=== PATIENT | male | born 1950 | race Caucasian/White ===

== ENCOUNTER 2018-01-25 09:35 | Day surgery (SDC) | payer MEDICARE, MEDICAID ==
[~2018-01-25 09:35] MED LIST: ALBU6.7H INH; ATOR40TA72 PO; CLOP75TA35 PO; CYCL10TA27 PO; DILT180C PO; DULO30CA51 PO; FURO40TA4 PO; GABA-532 PO; GLIM2TAB2 PO; HYDR25TA4 PO; INSU100I8 SQ; INSU100V12 SQ; ISOS30TA6 PO; METF10004 PO; METO25TA6 PO; MIRT30TA8 PO; MULT1TAB74 PO; NITR0.4T51 SL; OMEP-50 PO; POTA20TA19 PO
[2018-01-25] MEDS ORDERED: DULA1.5P (11:46)
[2018-01-25] MEDS ORDERED: LIDOcaine 1%/PF 5ML 10 MG/ML VIAL ONE (12:20)
== END 2018-01-25 13:17 | disposition home or self-care (01) ==
LOC: WOUND CARE 09:35
PROVIDERS: ATTEND Surgery
DX: E11.622 Type 2 diabetes mellitus with other skin ulcer (principal); L98.492 Non-pressure chronic ulcer of skin of other sites with fat layer exposed; I25.10 Atherosclerotic heart disease of native coronary artery without angina pectoris; J44.9 Chronic obstructive pulmonary disease, unspecified; I11.0 Hypertensive heart disease with heart failure; I50.9 Heart failure, unspecified; K21.9 Gastro-esophageal reflux disease without esophagitis; G89.29 Other chronic pain; E78.00 Pure hypercholesterolemia, unspecified; M06.9 Rheumatoid arthritis, unspecified; F41.9 Anxiety disorder, unspecified; F12.10 Cannabis abuse, uncomplicated; Z79.4 Long term (current) use of insulin
CPT/HCPCS: 11100; 36416; 82948; 93971; J2001; 88304

== ENCOUNTER 2018-02-01 09:36 | Outpatient (CLI) | payer MEDICARE, MEDICAID ==
[~2018-02-01 09:36] MED LIST changes: -CLOP75TA35 PO; -CYCL10TA27 PO; +DULA1.5P; -GLIM2TAB2 PO; -HYDR25TA4 PO; -INSU100I8 SQ; -OMEP-50 PO
== END 2018-02-01 10:35 | disposition home or self-care (01) ==
LOC: WOUND CARE 09:36
PROVIDERS: ATTEND Surgery
DX: E11.622 Type 2 diabetes mellitus with other skin ulcer (principal); L98.492 Non-pressure chronic ulcer of skin of other sites with fat layer exposed; I25.10 Atherosclerotic heart disease of native coronary artery without angina pectoris; J44.9 Chronic obstructive pulmonary disease, unspecified; I11.0 Hypertensive heart disease with heart failure; I50.9 Heart failure, unspecified; K21.9 Gastro-esophageal reflux disease without esophagitis; G89.29 Other chronic pain; E78.00 Pure hypercholesterolemia, unspecified; M06.9 Rheumatoid arthritis, unspecified; F41.9 Anxiety disorder, unspecified; F12.10 Cannabis abuse, uncomplicated; Z79.4 Long term (current) use of insulin
CPT/HCPCS: 82948; 99215

== ENCOUNTER 2018-03-08 17:05 | Emergency (ER) | payer MEDICARE, MEDICAID ==
[~2018-03-08] VITALS: Ht 584.7 cm; Wt 88.0 kg
[~2018-03-08 17:05] MED LIST changes: +METF-438 PO; -METF10004 PO
[2018-03-08] MEDS ORDERED: normal saline 1000ML IV soln IV ONE (17:15)
[2018-03-08] MEDS ORDERED: acetaminophen 325mg tablet PO ONE (17:20)
[2018-03-08] MEDS ORDERED: LORazepam 2 mg/ml vial IV ONE (17:40)
[2018-03-08 17:50] LABS: BASOPHILS # (AUTO) 0.1 X10'3 (0-0.2); BASOPHILS % (AUTO) 0.5 % (0-1); EOSINOPHILS # (AUTO) 0.1 X10'3 (0-0.9); EOSINOPHILS % (AUTO) 0.7 % (0-6); HEMATOCRIT 34.3 % (42.0-52.0); HEMOGLOBIN 11.7 g/dl (14.0-17.9); LYMPHOCYTES # (AUTO) 0.6 X10'3 (1.1-4.8); LYMPHOCYTES % (AUTO) 4.4 % (21-51); MEAN CORPUSCULAR HEMOGLOBIN 32.6 PG (27.0-31.0); MEAN CORPUSCULAR HGB CONC 34.2 % (33.0-36.5); MEAN CORPUSCULAR VOLUME 95.3 FL (78-98); MEAN PLATELET VOLUME 8.7 FL (7.4-10.4); MONOCYTES # (AUTO) 0.1 X10'3 (0-0.9); MONOCYTES % (AUTO) 0.9 % (2-12); NEUTROPHILS # (AUTO) 13.3 X10'3 (1.8-7.7); NEUTROPHILS % (AUTO) 93.5 % (42-75); PLATELET COUNT 148 X10'3 (140-440); WHITE BLOOD COUNT 14.3 X10'3 (4.5-11.0)
[2018-03-08 18:01] LABS: INR 1.2 INR; PARTIAL THROMBOPLASTIN TIME 30 SECONDS (22-32); PROTHROMBIN TIME 12.2 SECONDS (9.0-12.0)
[2018-03-08] MEDS ORDERED: CefTRIAXone/D5W-Rocephin 1gm 50 ML IV ONE (18:05)
[2018-03-08] MEDS ORDERED: clindamycin 600mg/D5W 50ml 50 ML IV ONE (18:05)
[2018-03-08] MEDS ORDERED: normal saline 1000ml 1,000 ML IV ONE (18:15)
[2018-03-08 18:17] LABS: ALANINE AMINOTRANSFERASE 42 U/L (12-78); ALBUMIN 3.2 G/DL (3.4-5.0); ALBUMIN/GLOBULIN RATIO 0.9 (1.1-1.5); ALKALINE PHOSPHATASE 76 IU/L (46-116); ANION GAP 8 (8-16); ASPARTATE AMINO TRANSFERASE 26 U/L (10-37); BILIRUBIN,TOTAL 0.6 MG/DL (0.1-1.0); BLOOD UREA NITROGEN 15 MG/DL (7-18); BUN/CREATININE RATIO 13.4 (5.4-32.0); CALCIUM 8.2 MG/DL (8.5-10.1); CHLORIDE 98 MMOL/L (99-107); CREATININE 1.12 MG/DL (0.60-1.10); ETHANOL < 0.010 GM/DL (0.0-0.010); GLUCOSE 168 MG/DL (70-104); SODIUM 135 MMOL/L (135-145); TOTAL CARBON DIOXIDE 28.6 MMOL/L (24-32); TOTAL PROTEIN 6.7 G/DL (6.4-8.2); eGFR 65 ML/MIN
[2018-03-08 18:21] LABS: TOTAL CELLS COUNTED 100
[2018-03-08 18:22] LABS: PLATELET ESTIMATE NORMAL; TOXIC GRANULATION 1+
[2018-03-08 18:57] LABS: URINE AMPHETAMINE SCREEN POSITIVE (Neg); URINE BARBITUATE SCREEN NEGATIVE (Neg); URINE BENZODIAZEPINES SCREEN NEGATIVE (Neg); URINE CANNABINOID SCREEN POSITIVE (Neg); URINE COCAINE SCREEN NEGATIVE (Neg); URINE METHADONE SCREEN NEGATIVE (Neg); URINE OPIATE SCREEN NEGATIVE (Neg); URINE PHENCYCLIDINE SCREEN NEGATIVE (Neg)
[2018-03-08] MEDS ORDERED: ACYC200C PO (19:02)
[2018-03-08] MEDS ORDERED: OFLO5DRO EACHEYE (19:02)
[2018-03-08] MEDS ORDERED: MECL12.584 PO (19:02)
[2018-03-08] MEDS ORDERED: AMOX-580 PO (19:02)
[2018-03-08] MEDS ORDERED: PANT20TA2 PO (19:02)
[2018-03-08] MEDS ORDERED: INSU300I (19:02)
[2018-03-08] MEDS ORDERED: ROSU10TA PO (19:02)
[2018-03-08] MEDS ORDERED: CEFU500T66 PO (19:02)
[2018-03-08] MEDS ORDERED: DULO-31 PO (19:02)
[2018-03-08] MEDS ORDERED: MELO-100 PO (19:02)
[2018-03-08] MEDS ORDERED: TIOT18CA3 (19:02)
[2018-03-08] MEDS ORDERED: METO-539 PO (19:02)
[2018-03-08] MEDS ORDERED: DIFL5DRO RIGHTEYE (19:02)
[2018-03-08] MEDS ORDERED: MUPI22OI30 TOP (19:02)
[2018-03-08] MEDS ORDERED: ALPRAZolam 0.5mg tablet PO ONE (20:05)
[2018-03-08] MEDS ORDERED: haloperidol lactate 5mg/ml inj IM ONE (20:10)
[2018-03-08] MEDS ORDERED: DOXYCYCLINE 100MG CAPSULE PO STA (20:39)
[2018-03-08] MEDS ORDERED: ondansetron 4mg rapidly disintigrating tab PO ONE (20:40)
[2018-03-08] MEDS ORDERED: cephalexin 500mg capsule PO ONE (20:40)
[2018-03-08] MEDS ORDERED: DOXY100C43 PO (20:41)
[2018-03-08] MEDS ORDERED: CEPH250T PO (20:41)
[2018-03-08 21:09] VITALS: BP 116/57
[2018-03-08 21:26] LABS: CLARITY,URINE CLEAR (Clear); COLOR,URINE YELLOW (Yellow); GLUCOSE, URINE NEGATIVE (Neg); KETONES,URINE NEGATIVE (Neg); LEUKOCYTE ESTERASE ,URINE NEGATIVE (Neg); NITRITES, URINE NEGATIVE (Neg); OCCULT BLOOD,URINE NEGATIVE (Neg); PROTEIN,URINE 30 mg/dl (Neg); UROBILINOGEN,URINE 0.2 E.U/dL (0.2-1.0)
[2018-03-08 21:50] LABS: UA COLLECTION TYPE CLN CATCH MIDSTREAM
[2018-03-08 21:52] LABS: BACTERIA,URINE FEW /HPF (Neg); RBC,URINE 0-2 /HPF (0-2); SQUAMOUS EPITHELIAL CELL,UR FEW /LPF (FEW); WBC,URINE 0-4 /HPF (0-4)
[2018-03-09] MEDS ORDERED: ROSU40TA PO (14:54)
[2018-03-09] MEDS ORDERED: METF1000 PO (14:55)
[2018-03-09] MEDS ORDERED: MECL-111 PO (14:58)
[2018-03-09] MEDS ORDERED: ASPI-611 PO (15:19)
== END 2018-03-08 21:11 | disposition left against medical advice (07) ==
LOC: ER 17:06
DX: A41.9 Sepsis, unspecified organism (principal); L03.116 Cellulitis of left lower limb; R41.82 Altered mental status, unspecified; R00.0 Tachycardia, unspecified; F15.10 Other stimulant abuse, uncomplicated; I25.10 Atherosclerotic heart disease of native coronary artery without angina pectoris; I50.9 Heart failure, unspecified; J44.9 Chronic obstructive pulmonary disease, unspecified; E11.9 Type 2 diabetes mellitus without complications; F12.90 Cannabis use, unspecified, uncomplicated; Z98.61 Coronary angioplasty status; Z95.1 Presence of aortocoronary bypass graft; Z90.49 Acquired absence of other specified parts of digestive tract; Z60.2 Problems related to living alone; Z88.1 Allergy status to other antibiotic agents; Z88.2 Allergy status to sulfonamides; Z79.1 Long term (current) use of non-steroidal anti-inflammatories (NSAID); Z79.899 Other long term (current) drug therapy
CPT/HCPCS: 36415; 70450; 71045; 72125; 80053; 80305; 80320; 81001; 83605; 84145; 84484; 85025; 85610; 85730; 87040; 93005; 93971; 96361; 96365; 96368; 96375; 99285; A6258; J0696; J2060; J3490; J7030; J1630

== ENCOUNTER 2018-03-09 10:38 | Inpatient (IN) | payer MEDICARE, MEDICAID ==
[~2018-03-09] VITALS: Ht 170.2 cm; Wt 93.0 kg
[~2018-03-09 10:38] MED LIST changes: +ACYC200C PO; -ALBU6.7H INH; +AMOX-580 PO; -ATOR40TA72 PO; +CEFU500T66 PO; +CEPH250T PO; +DIFL5DRO RIGHTEYE; -DILT180C PO; +DOXY100C43 PO; +DULO-31 PO; -DULO30CA51 PO; -INSU100V12 SQ; +INSU300I; -ISOS30TA6 PO; +MECL12.584 PO; +MELO-100 PO; -METF-438 PO; +METO-539 PO; +MUPI22OI30 TOP; +OFLO5DRO EACHEYE; +PANT20TA2 PO; +ROSU10TA PO; +TIOT18CA3; +etomidate 2mg/ml inj. ONE; +rocuronium 10mg/ml inj IV ONE
[2018-03-09] MEDS ORDERED: vancomycin/NS 1 GM ADD-VANTAGE 250 ML IV ONE (11:25)
[2018-03-09] MEDS ORDERED: normal saline 1000ML IV soln IV ONE (11:25)
[2018-03-09 12:03] LABS: BASOPHILS % (AUTO) 0.3 % (0-1); EOSINOPHILS % (AUTO) 0.1 % (0-6); HEMATOCRIT 35.8 % (42.0-52.0); HEMOGLOBIN 12.2 g/dl (14.0-17.9); LYMPHOCYTES # (AUTO) 1.4 X10'3 (1.1-4.8); MEAN CORPUSCULAR HEMOGLOBIN 32.5 PG (27.0-31.0); MEAN CORPUSCULAR HGB CONC 34.2 % (33.0-36.5); MEAN CORPUSCULAR VOLUME 95.1 FL (78-98); MEAN PLATELET VOLUME 8.2 FL (7.4-10.4); MONOCYTES # (AUTO) 0.4 X10'3 (0-0.9); MONOCYTES % (AUTO) 3.4 % (2-12); NEUTROPHILS # (AUTO) 10.9 X10'3 (1.8-7.7); NEUTROPHILS % (AUTO) 85.2 % (42-75); PLATELET COUNT 122 X10'3 (140-440); RED BLOOD COUNT 3.76 X10'6 (4.70-6.10); RED CELL DISTRIBUTION WIDTH 14.1 % (11.5-14.5); WHITE BLOOD COUNT 12.9 X10'3 (4.5-11.0)
[2018-03-09 12:14] LABS: INR 1.2 INR; PARTIAL THROMBOPLASTIN TIME 34 SECONDS (22-32); PROTHROMBIN TIME 12.5 SECONDS (9.0-12.0)
[2018-03-09 12:20] LABS: ALANINE AMINOTRANSFERASE 34 U/L (12-78); ALBUMIN 2.9 G/DL (3.4-5.0); ALBUMIN/GLOBULIN RATIO 0.7 (1.1-1.5); ALKALINE PHOSPHATASE 74 IU/L (46-116); ANION GAP 9 (8-16); ASPARTATE AMINO TRANSFERASE 32 U/L (10-37); BILIRUBIN,TOTAL 0.4 MG/DL (0.1-1.0); BLOOD UREA NITROGEN 16 MG/DL (7-18); BUN/CREATININE RATIO 14.3 (5.4-32.0); CALCIUM 8.3 MG/DL (8.5-10.1); CHLORIDE 100 MMOL/L (99-107); CREATININE 1.12 MG/DL (0.60-1.10); GLUCOSE 133 MG/DL (70-104); MAGNESIUM 1.9 MG/DL (1.5-2.4); POTASSIUM 3.7 MMOL/L (3.5-5.1); SODIUM 137 MMOL/L (135-145); TOTAL CARBON DIOXIDE 28.1 MMOL/L (24-32); TOTAL PROTEIN 6.9 G/DL (6.4-8.2); eGFR 65 ML/MIN
[2018-03-09] MEDS ORDERED: HYDROcodone/acetaminophen 5mg/325mg tablet PO ONE (13:10)
[2018-03-09] MEDS ORDERED: magnesium 1gm/100ml D5W IVPB 100 ML IV PRN (13:35)
[2018-03-09] MEDS ORDERED: HYDROcodone/acetaminophen 5mg/325mg tablet PO PRN (13:35)
[2018-03-09] MEDS ORDERED: ondansetron/PF 4mg/2ml inj IV PRN (13:35)
[2018-03-09] MEDS ORDERED: potassium Cl 20 mEq SR tablet PO PRN ×2 (13:35)
[2018-03-09] MEDS ORDERED: potassium Cl 40MEQ/NS 500ml 500 ML IV PRN ×2 (13:35)
[2018-03-09] MEDS ORDERED: dextrose 50%-water 50ml dispensing syringe IV PRN ×2 (13:35)
[2018-03-09] MEDS ORDERED: insulin Lispro (HumaLOG) vial - multi-dose SQ SCH (13:35)
[2018-03-09] MEDS ORDERED: magnesium 4gm in 100ml NS 100 ML IV PRN (13:35)
[2018-03-09] MEDS ORDERED: MESSAGE TO PHARMACY PO ONE (13:35)
[2018-03-09] MEDS ORDERED: glucagon, human recombinant 1mg kit SUBCUT PRN (13:35)
[2018-03-09] MEDS ORDERED: dextrose ORAL solution 15 GM/59 ML bottle PO PRN ×2 (13:35)
[2018-03-09] MEDS ORDERED: mag hydrox/Alum hydrox/simeth 30ml oral suspension PO PRN (13:35)
[2018-03-09] MEDS ORDERED: magnesium hydroxide 30ml (MOM) UD suspension PO PRN (13:35)
[2018-03-09] MEDS ORDERED: magnesium Cl slow-release 64mg tablet PO PRN (13:35)
[2018-03-09] MEDS ORDERED: acetaminophen 325mg tablet PO PRN ×2 (13:35)
[2018-03-09 13:51] LABS: CLARITY,URINE CLEAR (Clear); COLOR,URINE YELLOW (Yellow); GLUCOSE, URINE NEGATIVE (Neg); KETONES,URINE NEGATIVE (Neg); LEUKOCYTE ESTERASE ,URINE NEGATIVE (Neg); NITRITES, URINE NEGATIVE (Neg); OCCULT BLOOD,URINE TRACE-INTACT (Neg); PH,URINE 5.5 (4.8-8.0); PROTEIN,URINE NEGATIVE (Neg); UROBILINOGEN,URINE 0.2 E.U/dL (0.2-1.0)
[2018-03-09 14:32] LABS: HEMOGLOBIN A1C 6.2 % (4.5-6.2)
[2018-03-09 14:47] LABS: UA COLLECTION TYPE VOIDED
[2018-03-09] MEDS ORDERED: ROSU40TA PO (14:54)
[2018-03-09] MEDS ORDERED: METF1000 PO (14:55)
[2018-03-09] MEDS ORDERED: MECL-111 PO (14:58)
[2018-03-09] MEDS ORDERED: nitroGLYCERIN 0.4mg SUBLingual tab SL PRN (15:05)
[2018-03-09 15:07] LABS: BACTERIA,URINE NONE SEEN /HPF (Neg); RBC,URINE 0-2 /HPF (0-2); SQUAMOUS EPITHELIAL CELL,UR NONE SEEN /LPF (FEW); WBC,URINE NONE SEEN /HPF (0-4)
[2018-03-09] MEDS ORDERED: ASPI-611 PO (15:19)
[2018-03-09 15:30] VITALS: BP 103/66
[2018-03-09] MEDS: normal saline 1000ml 1,000 ML IV SCH (16:07)
[2018-03-09 19:30] VITALS: BP 109/57
[2018-03-09] MEDS ORDERED: LORazepam 2 mg/ml vial IV ONE (19:55)
[2018-03-09] MEDS: potassium Cl 20 mEq SR tablet PO SCH (20:05)
[2018-03-09] MEDS: mirtazapine 15mg tablet PO SCH (20:14)
[2018-03-09] MEDS: atorvastatin 20mg tablet PO SCH (20:14)
[2018-03-09] MEDS: gabapentin 300mg capsule PO SCH (20:14)
[2018-03-09] MEDS: metoprolol tartrate 25mg tablet PO SCH (20:14)
[2018-03-09] MEDS: ipratropium/albuterol 3ml nebule NEB PRN (20:52)
[2018-03-09 20:54] VITALS: BP 117/67
[2018-03-09] MEDS: insulin glargine (Lantus) pen - multi-dose SQ SCH (21:00)
[2018-03-09] MEDS: HYDROcodone/acetaminophen 10/325mg tab PO PRN (21:03)
[2018-03-09] MEDS: furosemide 40mg tablet PO SCH (21:03)
[2018-03-09] MEDS: vancomycin/NS 1 GM ADD-VANTAGE 250 ML IV SCH (23:06)
[2018-03-09 23:57] VITALS: BP 106/67
[2018-03-10] MEDS: normal saline 1000ml 1,000 ML IV SCH ×2 (02:17→09:34)
[2018-03-10] MEDS: ipratropium/albuterol 3ml nebule NEB PRN ×3 (04:37→11:44)
[2018-03-10 05:43] LABS: BASOPHILS # (AUTO) 0.1 X10'3 (0-0.2); BASOPHILS % (AUTO) 0.5 % (0-1); EOSINOPHILS # (AUTO) 0.2 X10'3 (0-0.9); HEMATOCRIT 36.2 % (42.0-52.0); LYMPHOCYTES # (AUTO) 3.4 X10'3 (1.1-4.8); LYMPHOCYTES % (AUTO) 16.6 % (21-51); MEAN CORPUSCULAR HEMOGLOBIN 31.9 PG (27.0-31.0); MEAN CORPUSCULAR HGB CONC 33.2 % (33.0-36.5); MEAN CORPUSCULAR VOLUME 96.2 FL (78-98); MEAN PLATELET VOLUME 10.1 FL (7.4-10.4); NEUTROPHILS # (AUTO) 15.5 X10'3 (1.8-7.7); NEUTROPHILS % (AUTO) 76.9 % (42-75); PLATELET COUNT 170 X10'3 (140-440); RED BLOOD COUNT 3.77 X10'6 (4.70-6.10); RED CELL DISTRIBUTION WIDTH 14.4 % (11.5-14.5); WHITE BLOOD COUNT 20.2 X10'3 (4.5-11.0)
[2018-03-10 06:08] LABS: ALANINE AMINOTRANSFERASE 29 U/L (12-78); ALBUMIN 2.9 G/DL (3.4-5.0); ALBUMIN/GLOBULIN RATIO 0.7 (1.1-1.5); ALKALINE PHOSPHATASE 80 IU/L (46-116); ANION GAP 13 (8-16); ASPARTATE AMINO TRANSFERASE 35 U/L (10-37); BILIRUBIN,TOTAL 0.4 MG/DL (0.1-1.0); BLOOD UREA NITROGEN 17 MG/DL (7-18); BUN/CREATININE RATIO 14.7 (5.4-32.0); CALCIUM 8.2 MG/DL (8.5-10.1); CHLORIDE 102 MMOL/L (99-107); CREATININE 1.16 MG/DL (0.60-1.10); GLUCOSE 105 MG/DL (70-104); POTASSIUM 4.2 MMOL/L (3.5-5.1); SODIUM 138 MMOL/L (135-145); TOTAL CARBON DIOXIDE 23.5 MMOL/L (24-32); TOTAL PROTEIN 7.1 G/DL (6.4-8.2); eGFR 63 ML/MIN
[2018-03-10 06:29] LABS: GIANT PLATELET FEW; PLATELET ESTIMATE NORMAL
[2018-03-10] MEDS ORDERED: pantoprazole 40mg Tablet.DR PO SCH (07:30)
[2018-03-10 08:00] VITALS: BP 122/72
[2018-03-10] MEDS ORDERED: aspirin 81mg tablet.DR PO SCH (08:00)
[2018-03-10] MEDS: K and/or MAG REPLACEMENT MC SCH (08:00)
[2018-03-10] MEDS ORDERED: enoxaparin 40mg/0.4ml syringe SQ SCH (08:00)
[2018-03-10] MEDS: gabapentin 300mg capsule PO SCH ×3 (08:34→20:35)
[2018-03-10] MEDS: potassium Cl 20 mEq SR tablet PO SCH ×2 (08:34→20:35)
[2018-03-10] MEDS: furosemide 40mg tablet PO SCH ×2 (08:34→14:55)
[2018-03-10] MEDS: metoprolol tartrate 25mg tablet PO SCH ×2 (08:34→20:35)
[2018-03-10] MEDS: duloxetine 30mg CAPSULE.DR PO SCH (08:35)
[2018-03-10] MEDS ORDERED: LORazepam 0.5 MG tablet PO PRN (08:50)
[2018-03-10] MEDS: HYDROcodone/acetaminophen 10/325mg tab PO PRN (09:07)
[2018-03-10] MEDS ORDERED: HYDROmorphone inj. 0.5 MG/0.5 ML DISP.SYRIN IV PRN (11:30)
[2018-03-10 12:00] VITALS: BP 137/80
[2018-03-10] MEDS ORDERED: HYDROmorphone 1 mg/ml syringe ONE (12:28)
[2018-03-10] MEDS: vancomycin/NS 1 GM ADD-VANTAGE 250 ML IV SCH (12:30)
[2018-03-10] MEDS ORDERED: HYDROmorphone 1 mg/ml syringe IV PRN (12:37)
[2018-03-10] MEDS: CefTRIAXone/D5W-Rocephin 1gm 50 ML IV SCH (16:48)
[2018-03-10] MEDS: LORazepam 0.5 MG tablet PO PRN ×2 (16:49→20:36)
[2018-03-10 20:00] VITALS: BP 158/85
[2018-03-10] MEDS: atorvastatin 20mg tablet PO SCH (20:36)
[2018-03-10] MEDS: mirtazapine 15mg tablet PO SCH (20:36)
[2018-03-10] MEDS: insulin glargine (Lantus) pen - multi-dose SQ SCH (20:45)
[2018-03-10] MEDS ORDERED: VANCOMYCIN LEVEL IV ONE (23:30)
[2018-03-11] VITALS (23 sets, daily range): BP systolic 85–182; BP diastolic 48–88
[2018-03-11] MEDS: vancomycin/NS 1 GM ADD-VANTAGE 250 ML IV SCH (00:36)
[2018-03-11] MEDS: LORazepam 0.5 MG tablet PO PRN (00:38)
[2018-03-11 00:54] LABS: ALANINE AMINOTRANSFERASE 40 U/L (12-78); ALBUMIN 2.8 G/DL (3.4-5.0); ALBUMIN/GLOBULIN RATIO 0.6 (1.1-1.5); ALKALINE PHOSPHATASE 82 IU/L (46-116); ANION GAP 11 (8-16); ASPARTATE AMINO TRANSFERASE 42 U/L (10-37); BILIRUBIN,TOTAL 0.5 MG/DL (0.1-1.0); BLOOD UREA NITROGEN 13 MG/DL (7-18); BUN/CREATININE RATIO 12.9 (5.4-32.0); CALCIUM 8.2 MG/DL (8.5-10.1); CHLORIDE 98 MMOL/L (99-107); CREATININE 1.01 MG/DL (0.60-1.10); GLUCOSE 161 MG/DL (70-104); MAGNESIUM 1.9 MG/DL (1.5-2.4); POTASSIUM 3.9 MMOL/L (3.5-5.1); SODIUM 136 MMOL/L (135-145); TOTAL CARBON DIOXIDE 27.2 MMOL/L (24-32); TOTAL PROTEIN 7.3 G/DL (6.4-8.2); VANCOMYCIN,TROUGH 10.1 UG/ML (6.0-14.0); eGFR 73 ML/MIN
[2018-03-11] MEDS: ipratropium/albuterol 3ml nebule NEB PRN (00:59)
[2018-03-11 01:13] LABS: HEMATOCRIT 36.3 % (42.0-52.0); HEMOGLOBIN 11.5 g/dl (14.0-17.9); MEAN CORPUSCULAR HEMOGLOBIN 30.9 PG (27.0-31.0); MEAN CORPUSCULAR HGB CONC 31.6 % (33.0-36.5); MEAN CORPUSCULAR VOLUME 97.7 FL (78-98); PLATELET COUNT 117 X10'3 (140-440); RED BLOOD COUNT 3.72 X10'6 (4.70-6.10); RED CELL DISTRIBUTION WIDTH 13.1 % (11.5-14.5); WHITE BLOOD COUNT 6.9 X10'3 (4.5-11.0)
[2018-03-11 01:14] LABS: BASOPHILS % (AUTO) 0.6 % (0-1); EOSINOPHILS # (AUTO) 0.1 X10'3 (0-0.9); EOSINOPHILS % (AUTO) 1.3 % (0-6); LYMPHOCYTES # (AUTO) 0.8 X10'3 (1.1-4.8); LYMPHOCYTES % (AUTO) 12.2 % (21-51); MEAN PLATELET VOLUME 9.1 FL (7.4-10.4); MONOCYTES # (AUTO) 0.5 X10'3 (0-0.9); MONOCYTES % (AUTO) 7.1 % (2-12); NEUTROPHILS # (AUTO) 5.4 X10'3 (1.8-7.7); NEUTROPHILS % (AUTO) 78.8 % (42-75)
[2018-03-11 01:16] LABS: ABG BASE EXCESS -1.9 mmol/L (-2.0-3.0); ABG HCO3 26.9 mmol/L (22.0-26.0); ABG OXYGEN SATURATION 96.1 % (95-98); ABG PCO2 (T) 66.1 mmHg (35.0-48.0); ABG PH (T) 7.227 (7.350-7.450); ABG PO2 (T) 98.4 mmHg (83-108); FCOHb 0.4 % (0.5-1.5); FLOW 8 L/min; FO2Hb 95.7 % (94-100); PATIENT TEMPERATURE 36.9; RESPIRATORY RATE (OBSERVED) 26 b/min; TOTAL HEMOGLOBIN 12.3 G/dl (14.0-18.0)
[2018-03-11] MEDS ORDERED: furosemide 40mg/4ml inj ONE (01:20)
[2018-03-11] MEDS ORDERED: ipratropium/albuterol 3ml nebule NEB PRN (01:45)
[2018-03-11] MEDS ORDERED: heparin 10,000 units/1 ML INJ IV ONE (01:50)
[2018-03-11] MEDS: midazolam 100mg in NS 100ml 100 ML IV PRN (02:07)
[2018-03-11] MEDS: FENTANYL-0.9 % NACL/PF 100 ML IV PRN (02:07)
[2018-03-11] MEDS ORDERED: acetaminophen 325mg/10.15ml oral unit dose solution PO PRN (02:25)
[2018-03-11 02:36] LABS: BASOPHILS % (AUTO) 0.5 % (0-1); EOSINOPHILS # (AUTO) 0.1 X10'3 (0-0.9); EOSINOPHILS % (AUTO) 0.6 % (0-6); HEMATOCRIT 35.6 % (42.0-52.0); HEMOGLOBIN 12.1 g/dl (14.0-17.9); LYMPHOCYTES # (AUTO) 0.7 X10'3 (1.1-4.8); LYMPHOCYTES % (AUTO) 6.4 % (21-51); MEAN CORPUSCULAR HEMOGLOBIN 32.3 PG (27.0-31.0); MEAN CORPUSCULAR HGB CONC 34.1 % (33.0-36.5); MEAN CORPUSCULAR VOLUME 94.7 FL (78-98); MEAN PLATELET VOLUME 9.5 FL (7.4-10.4); MONOCYTES # (AUTO) 0.6 X10'3 (0-0.9); MONOCYTES % (AUTO) 5.3 % (2-12); NEUTROPHILS # (AUTO) 9.3 X10'3 (1.8-7.7); NEUTROPHILS % (AUTO) 87.2 % (42-75); PLATELET COUNT 154 X10'3 (140-440); RED BLOOD COUNT 3.76 X10'6 (4.70-6.10); RED CELL DISTRIBUTION WIDTH 14.5 % (11.5-14.5); WHITE BLOOD COUNT 10.6 X10'3 (4.5-11.0)
[2018-03-11 02:39] LABS: CLARITY,URINE CLEAR (Clear); COLOR,URINE STRAW (Yellow); GLUCOSE, URINE NEGATIVE (Neg); KETONES,URINE NEGATIVE (Neg); LEUKOCYTE ESTERASE ,URINE NEGATIVE (Neg); NITRITES, URINE NEGATIVE (Neg); OCCULT BLOOD,URINE SMALL (Neg); PROTEIN,URINE NEGATIVE (Neg); UROBILINOGEN,URINE 0.2 E.U/dL (0.2-1.0)
[2018-03-11 02:47] LABS: UA COLLECTION TYPE FOLEY CATH
[2018-03-11 02:50] LABS: BACTERIA,URINE NONE SEEN /HPF (Neg); MUCUS STRANDS NONE SEEN /LPF (Neg); RBC,URINE 0-2 /HPF (0-2); SQUAMOUS EPITHELIAL CELL,UR NONE SEEN /LPF (FEW); WBC,URINE NONE SEEN /HPF (0-4)
[2018-03-11] MEDS: ipratropium/albuterol 3ml nebule NEB SCH ×6 (02:55→23:00)
[2018-03-11 03:16] LABS: ABG BASE EXCESS 1.5 mmol/L (-2.0-3.0); ABG HCO3 27.6 mmol/L (22.0-26.0); ABG OXYGEN SATURATION 94.1 % (95-98); ABG PCO2 (T) 55.4 mmHg (35.0-48.0); ABG PH (T) 7.326 (7.350-7.450); ALLEN'S TEST Positive; FCOHb 0.5 % (0.5-1.5); FO2Hb 93.6 % (94-100); MINUTE VOLUME 12 L/min; PATIENT TEMPERATURE 39.3; PEEP 5 cm H2O; RESPIRATORY RATE 18 b/min; RESPIRATORY RATE (OBSERVED) 20 b/min; TOTAL HEMOGLOBIN 11.8 G/dl (14.0-18.0)
[2018-03-11 03:40] LABS: D-DIMER 1.86 MG/L FEU (0-0.50); PARTIAL THROMBOPLASTIN TIME 33 SECONDS (22-32); PROTHROMBIN TIME 10.3 SECONDS (9.0-12.0)
[2018-03-11 03:56] LABS: ALANINE AMINOTRANSFERASE 39 U/L (12-78); ALBUMIN 2.9 G/DL (3.4-5.0); ALBUMIN/GLOBULIN RATIO 0.6 (1.1-1.5); ALKALINE PHOSPHATASE 81 IU/L (46-116); ANION GAP 8 (8-16); ASPARTATE AMINO TRANSFERASE 40 U/L (10-37); BILIRUBIN,TOTAL 0.6 MG/DL (0.1-1.0); BLOOD UREA NITROGEN 12 MG/DL (7-18); BUN/CREATININE RATIO 11.2 (5.4-32.0); CALCIUM 8.4 MG/DL (8.5-10.1); CHLORIDE 99 MMOL/L (99-107); CREATININE 1.07 MG/DL (0.60-1.10); GLUCOSE 188 MG/DL (70-104); MAGNESIUM 2.1 MG/DL (1.5-2.4); PHOSPHORUS 3.2 MG/DL (2.3-4.5); POTASSIUM 4.1 MMOL/L (3.5-5.1); SODIUM 136 MMOL/L (135-145); TOTAL CARBON DIOXIDE 29.5 MMOL/L (24-32); TOTAL PROTEIN 7.5 G/DL (6.4-8.2); eGFR 69 ML/MIN
[2018-03-11 04:01] LABS: TROPONIN I 1.12 NG/ML (0.0-0.05)
[2018-03-11] MEDS ORDERED: normal saline 250ml IV soln 250 ML IV ONE (04:35)
[2018-03-11] MEDS: normal saline 1000ml 1,000 ML IV SCH ×2 (04:47→15:59)
[2018-03-11] MEDS: K and/or MAG REPLACEMENT MC SCH (06:35)
[2018-03-11] MEDS ORDERED: potassium Cl oral solution 20 MEQ/15 ML PO PRN ×2 (06:38→06:39)
[2018-03-11] MEDS: CefTRIAXone/D5W-Rocephin 1gm 50 ML IV SCH (07:47)
[2018-03-11] MEDS: aspirin 81mg tab.chew PO SCH (07:49)
[2018-03-11] MEDS: gabapentin 300mg capsule PO SCH ×3 (07:49→20:50)
[2018-03-11] MEDS: metoprolol tartrate 25mg tablet PO SCH ×2 (07:49→20:00)
[2018-03-11] MEDS: potassium Cl oral solution 20 MEQ/15 ML PO SCH ×2 (07:49→20:51)
[2018-03-11] MEDS: furosemide 40mg tablet PO SCH (07:49)
[2018-03-11] MEDS: duloxetine 30mg CAPSULE.DR PO SCH (07:49)
[2018-03-11] MEDS: pantoprazole 40 MG vial IV SCH (07:50)
[2018-03-11] MEDS: neomy sulf/bacitrac zn/polymixin b oint 14.2 gm tube TP SCH (08:42)
[2018-03-11] MEDS: heparin 10,000 units/1 ML INJ IV PRN (10:22)
[2018-03-11] MEDS: vancomycin inj 1,250 MG in normal saline 250ml IV soln 250 ML IV SCH ×2 (12:12→23:51)
[2018-03-11] MEDS ORDERED: iohexol 350MG/ML 100ml bottle IV ONE (13:51)
[2018-03-11] MEDS: MESSAGE TO NURSING PO SCH (14:00)
[2018-03-11] MEDS: metroNIDAZOLE-Flagyl 500mg/NS 100ml IVPB IV SCH ×2 (15:59→23:51)
[2018-03-11] MEDS: lactobacillus rhamnosus 10,000 MMU CELLS/CAPSULE PO SCH (20:50)
[2018-03-11] MEDS: mirtazapine 15mg tablet PO SCH (20:50)
[2018-03-11] MEDS: atorvastatin 20mg tablet PO SCH (20:51)
[2018-03-11] MEDS: insulin glargine (Lantus) pen - multi-dose SQ SCH (20:53)
[2018-03-12] VITALS (24 sets, daily range): BP systolic 89–113; BP diastolic 50–66
[2018-03-12 01:39] LABS: ALANINE AMINOTRANSFERASE 44 U/L (12-78); ALBUMIN 2.1 G/DL (3.4-5.0); ALBUMIN/GLOBULIN RATIO 0.5 (1.1-1.5); ALKALINE PHOSPHATASE 62 IU/L (46-116); ANION GAP 11 (8-16); ASPARTATE AMINO TRANSFERASE 53 U/L (10-37); BILIRUBIN,TOTAL 0.6 MG/DL (0.1-1.0); BLOOD UREA NITROGEN 12 MG/DL (7-18); BUN/CREATININE RATIO 12.2 (5.4-32.0); CALCIUM 7.8 MG/DL (8.5-10.1); CHLORIDE 104 MMOL/L (99-107); CREATININE 0.98 MG/DL (0.60-1.10); GLUCOSE 126 MG/DL (70-104); MAGNESIUM 1.9 MG/DL (1.5-2.4); POTASSIUM 3.2 MMOL/L (3.5-5.1); SODIUM 140 MMOL/L (135-145); TOTAL CARBON DIOXIDE 25.2 MMOL/L (24-32); eGFR 76 ML/MIN
[2018-03-12] MEDS: normal saline 1000ml 1,000 ML IV SCH ×3 (01:57→20:09)
[2018-03-12] MEDS: heparin 10,000 units/1 ML INJ IV PRN (02:07)
[2018-03-12 02:18] LABS: BASOPHILS % (AUTO) 0.5 % (0-1); EOSINOPHILS # (AUTO) 0.1 X10'3 (0-0.9); EOSINOPHILS % (AUTO) 2.9 % (0-6); HEMATOCRIT 26.4 % (42.0-52.0); HEMOGLOBIN 8.8 g/dl (14.0-17.9); LYMPHOCYTES # (AUTO) 1.3 X10'3 (1.1-4.8); LYMPHOCYTES % (AUTO) 29.1 % (21-51); MEAN CORPUSCULAR HEMOGLOBIN 31.4 PG (27.0-31.0); MEAN CORPUSCULAR HGB CONC 33.3 % (33.0-36.5); MEAN CORPUSCULAR VOLUME 94.3 FL (78-98); MONOCYTES # (AUTO) 0.3 X10'3 (0-0.9); MONOCYTES % (AUTO) 5.7 % (2-12); NEUTROPHILS # (AUTO) 2.9 X10'3 (1.8-7.7); NEUTROPHILS % (AUTO) 61.8 % (42-75); PLATELET COUNT 112 X10'3 (140-440); RED CELL DISTRIBUTION WIDTH 14.1 % (11.5-14.5); WHITE BLOOD COUNT 4.6 X10'3 (4.5-11.0)
[2018-03-12] MEDS: mineral oil/petrolatum ophthal oint EACHEYE SCH ×4 (03:00→20:08)
[2018-03-12] MEDS: ipratropium/albuterol 3ml nebule NEB SCH ×6 (03:00→23:05)
[2018-03-12 03:57] LABS: ABG BASE EXCESS 0.5 mmol/L (-2.0-3.0); ABG HCO3 23.9 mmol/L (22.0-26.0); ABG OXYGEN SATURATION 90.1 % (95-98); ABG PCO2 (T) 33.3 mmHg (35.0-48.0); ABG PH (T) 7.473 (7.350-7.450); ABG PO2 (T) 57.2 mmHg (83-108); ALLEN'S TEST Positive; FCOHb 0.3 % (0.5-1.5); FMetHb 0.3 % (0.3-1.12); FO2Hb 89.6 % (94-100); MINUTE VOLUME 12 L/min; PATIENT TEMPERATURE 36.8; PEEP 5 cm H2O; RESPIRATORY RATE 22 b/min; RESPIRATORY RATE (OBSERVED) 22 b/min; TIDAL VOLUME 516 mL; TOTAL HEMOGLOBIN 9.7 G/dl (14.0-18.0)
[2018-03-12] MEDS: FENTANYL-0.9 % NACL/PF 100 ML IV PRN (04:41)
[2018-03-12] MEDS: midazolam 100mg in NS 100ml 100 ML IV PRN ×2 (04:41→09:21)
[2018-03-12] MEDS: K and/or MAG REPLACEMENT MC SCH (08:00)
[2018-03-12] MEDS: furosemide 40mg tablet PO SCH (08:00)
[2018-03-12] MEDS: neomy sulf/bacitrac zn/polymixin b oint 14.2 gm tube TP SCH (08:00)
[2018-03-12] MEDS: aspirin 81mg tab.chew PO SCH (08:00)
[2018-03-12] MEDS: pantoprazole 40 MG vial IV SCH (09:03)
[2018-03-12] MEDS: lactobacillus rhamnosus 10,000 MMU CELLS/CAPSULE PO SCH ×2 (09:04→20:08)
[2018-03-12] MEDS: gabapentin 300mg capsule PO SCH ×3 (09:04→20:09)
[2018-03-12] MEDS: duloxetine 30mg CAPSULE.DR PO SCH (09:04)
[2018-03-12] MEDS: metoprolol tartrate 25mg tablet PO SCH ×2 (09:05→20:00)
[2018-03-12] MEDS: metroNIDAZOLE-Flagyl 500mg/NS 100ml IVPB IV SCH ×2 (09:06→15:34)
[2018-03-12] MEDS: potassium Cl oral solution 20 MEQ/15 ML PO SCH ×2 (09:06→20:08)
[2018-03-12] MEDS: CefTRIAXone/D5W-Rocephin 1gm 50 ML IV SCH (09:07)
[2018-03-12] MEDS: vancomycin inj 1,250 MG in normal saline 250ml IV soln 250 ML IV SCH (11:44)
[2018-03-12] MEDS: MESSAGE TO NURSING PO SCH (14:47)
[2018-03-12] MEDS: enoxaparin 60mg/0.6ml syringe SUBCUT SCH (15:35)
[2018-03-12] MEDS: dexmedetomidin/NS 400mcg/100ml 100 ML IV SCH (19:08)
[2018-03-12] MEDS: mirtazapine 15mg tablet PO SCH (20:08)
[2018-03-12] MEDS: atorvastatin 20mg tablet PO SCH (20:09)
[2018-03-12] MEDS: insulin glargine (Lantus) pen - multi-dose SQ SCH (20:54)
[2018-03-12] MEDS ORDERED: VANCOMYCIN LEVEL IV ONE (23:30)
[2018-03-13] VITALS (21 sets, daily range): BP systolic 90–135; BP diastolic 59–76
[2018-03-13] MEDS: vancomycin inj 1,250 MG in normal saline 250ml IV soln 250 ML IV SCH ×2 (00:05→11:40)
[2018-03-13] MEDS: metroNIDAZOLE-Flagyl 500mg/NS 100ml IVPB IV SCH ×3 (00:05→16:04)
[2018-03-13] MEDS: mineral oil/petrolatum ophthal oint EACHEYE SCH ×4 (02:03→20:49)
[2018-03-13] MEDS: ipratropium/albuterol 3ml nebule NEB SCH ×6 (02:52→22:22)
[2018-03-13 03:11] LABS: ABG BASE EXCESS -2.6 mmol/L (-2.0-3.0); ABG HCO3 22.1 mmol/L (22.0-26.0); ABG OXYGEN SATURATION 96.2 % (95-98); ABG PCO2 (T) 37.2 mmHg (35.0-48.0); ABG PO2 (T) 88.7 mmHg (83-108); ALLEN'S TEST Positive; FCOHb 0.3 % (0.5-1.5); FMetHb 0.3 % (0.3-1.12); FO2Hb 95.6 % (94-100); MINUTE VOLUME 12 L/min; PATIENT TEMPERATURE 36.9; PEEP 5 cm H2O; RESPIRATORY RATE (OBSERVED) 28 b/min; TOTAL HEMOGLOBIN 9.8 G/dl (14.0-18.0)
[2018-03-13] MEDS: FENTANYL-0.9 % NACL/PF 100 ML IV PRN ×2 (05:07→06:32)
[2018-03-13] MEDS: dexmedetomidin/NS 400mcg/100ml 100 ML IV SCH ×3 (05:09→21:17)
[2018-03-13 05:31] LABS: ALANINE AMINOTRANSFERASE 49 U/L (12-78); ALBUMIN 1.9 G/DL (3.4-5.0); ALBUMIN/GLOBULIN RATIO 0.5 (1.1-1.5); ALKALINE PHOSPHATASE 75 IU/L (46-116); ANION GAP 11 (8-16); ASPARTATE AMINO TRANSFERASE 73 U/L (10-37); BILIRUBIN,TOTAL 0.3 MG/DL (0.1-1.0); BLOOD UREA NITROGEN 13 MG/DL (7-18); BUN/CREATININE RATIO 15.1 (5.4-32.0); CALCIUM 7.6 MG/DL (8.5-10.1); CHLORIDE 108 MMOL/L (99-107); CREATININE 0.86 MG/DL (0.60-1.10); GLUCOSE 172 MG/DL (70-104); MAGNESIUM 2.1 MG/DL (1.5-2.4); POTASSIUM 4.3 MMOL/L (3.5-5.1); SODIUM 142 MMOL/L (135-145); TOTAL CARBON DIOXIDE 23.3 MMOL/L (24-32); TOTAL PROTEIN 5.8 G/DL (6.4-8.2); eGFR 88 ML/MIN
[2018-03-13] MEDS: normal saline 1000ml 1,000 ML IV SCH ×3 (06:30→18:29)
[2018-03-13 06:42] LABS: BASOPHILS % (AUTO) 0.2 % (0-1); EOSINOPHILS # (AUTO) 0.1 X10'3 (0-0.9); EOSINOPHILS % (AUTO) 2.8 % (0-6); HEMATOCRIT 28.1 % (42.0-52.0); HEMOGLOBIN 9.4 g/dl (14.0-17.9); LYMPHOCYTES # (AUTO) 0.9 X10'3 (1.1-4.8); LYMPHOCYTES % (AUTO) 18.8 % (21-51); MEAN CORPUSCULAR HEMOGLOBIN 32.1 PG (27.0-31.0); MEAN CORPUSCULAR HGB CONC 33.4 % (33.0-36.5); MEAN PLATELET VOLUME 9.1 FL (7.4-10.4); MONOCYTES # (AUTO) 0.2 X10'3 (0-0.9); MONOCYTES % (AUTO) 4.6 % (2-12); NEUTROPHILS # (AUTO) 3.6 X10'3 (1.8-7.7); NEUTROPHILS % (AUTO) 73.6 % (42-75); PLATELET COUNT 130 X10'3 (140-440); RED BLOOD COUNT 2.93 X10'6 (4.70-6.10); RED CELL DISTRIBUTION WIDTH 14.4 % (11.5-14.5); WHITE BLOOD COUNT 4.8 X10'3 (4.5-11.0)
[2018-03-13] MEDS: pantoprazole 40 MG vial IV SCH (07:57)
[2018-03-13] MEDS: potassium Cl oral solution 20 MEQ/15 ML PO SCH ×2 (07:58→20:50)
[2018-03-13] MEDS: K and/or MAG REPLACEMENT MC SCH (08:00)
[2018-03-13] MEDS: CefTRIAXone/D5W-Rocephin 1gm 50 ML IV SCH (08:01)
[2018-03-13] MEDS: aspirin 81mg tab.chew PO SCH (08:02)
[2018-03-13] MEDS: duloxetine 30mg CAPSULE.DR PO SCH (08:03)
[2018-03-13] MEDS: lactobacillus rhamnosus 10,000 MMU CELLS/CAPSULE PO SCH ×2 (08:03→20:50)
[2018-03-13] MEDS: furosemide 40mg tablet PO SCH (08:06)
[2018-03-13] MEDS: metoprolol tartrate 25mg tablet PO SCH ×2 (08:06→20:50)
[2018-03-13] MEDS: gabapentin 300mg capsule PO SCH ×3 (08:07→20:50)
[2018-03-13] MEDS: enoxaparin 60mg/0.6ml syringe SUBCUT SCH (08:09)
[2018-03-13] MEDS: neomy sulf/bacitrac zn/polymixin b oint 14.2 gm tube TP SCH (08:11)
[2018-03-13] MEDS: OLANZapine 5mg rapidly disint. tablet PO SCH (09:15)
[2018-03-13] MEDS: albumin (human) 25% 100 ML IV solution IV SCH (20:36)
[2018-03-13] MEDS: furosemide 40mg/4ml inj IV SCH (20:49)
[2018-03-13] MEDS: atorvastatin 20mg tablet PO SCH (20:53)
[2018-03-13] MEDS: mirtazapine 15mg tablet PO SCH (20:53)
[2018-03-13] MEDS: insulin glargine (Lantus) pen - multi-dose SQ SCH (20:59)
[2018-03-13] MEDS: insulin regular, human vial - multi-dose SQ SCH (21:00)
[2018-03-14] VITALS (20 sets, daily range): BP systolic 97–153; BP diastolic 58–86
[2018-03-14] MEDS: metroNIDAZOLE-Flagyl 500mg/NS 100ml IVPB IV SCH ×4 (00:24→23:38)
[2018-03-14] MEDS: vancomycin inj 1,250 MG in normal saline 250ml IV soln 250 ML IV SCH ×2 (00:24→12:54)
[2018-03-14] MEDS: ipratropium/albuterol 3ml nebule NEB SCH ×6 (02:28→22:33)
[2018-03-14] MEDS: mineral oil/petrolatum ophthal oint EACHEYE SCH ×4 (02:32→20:00)
[2018-03-14] MEDS: insulin regular, human vial - multi-dose SQ SCH ×2 (02:35→09:11)
[2018-03-14] MEDS: midazolam 100mg in NS 100ml 100 ML IV PRN (03:36)
[2018-03-14 04:01] LABS: ABG HCO3 24.6 mmol/L (22.0-26.0); ABG OXYGEN SATURATION 93.5 % (95-98); ABG PCO2 (T) 40.5 mmHg (35.0-48.0); ABG PH (T) 7.403 (7.350-7.450); ABG PO2 (T) 72.2 mmHg (83-108); ALLEN'S TEST Positive; FCOHb 0.3 % (0.5-1.5); FMetHb 0.3 % (0.3-1.12); FO2Hb 92.9 % (94-100); MINUTE VOLUME 10 L/min; PATIENT TEMPERATURE 37.2; PEEP 5 cm H2O; RESPIRATORY RATE 0 b/min; RESPIRATORY RATE (OBSERVED) 26 b/min; TIDAL VOLUME 356 mL; TOTAL HEMOGLOBIN 10.3 G/dl (14.0-18.0)
[2018-03-14] MEDS: dexmedetomidin/NS 400mcg/100ml 100 ML IV SCH ×2 (05:15→07:08)
[2018-03-14 06:11] LABS: BASOPHILS % (AUTO) 0.4 % (0-1); EOSINOPHILS # (AUTO) 0.2 X10'3 (0-0.9); EOSINOPHILS % (AUTO) 3.2 % (0-6); HEMATOCRIT 28.9 % (42.0-52.0); HEMOGLOBIN 9.6 g/dl (14.0-17.9); LYMPHOCYTES # (AUTO) 1.1 X10'3 (1.1-4.8); LYMPHOCYTES % (AUTO) 22.8 % (21-51); MEAN CORPUSCULAR HEMOGLOBIN 31.9 PG (27.0-31.0); MEAN CORPUSCULAR HGB CONC 33.3 % (33.0-36.5); MEAN CORPUSCULAR VOLUME 95.6 FL (78-98); MEAN PLATELET VOLUME 8.9 FL (7.4-10.4); MONOCYTES # (AUTO) 0.3 X10'3 (0-0.9); MONOCYTES % (AUTO) 5.9 % (2-12); NEUTROPHILS # (AUTO) 3.3 X10'3 (1.8-7.7); NEUTROPHILS % (AUTO) 67.7 % (42-75); PLATELET COUNT 151 X10'3 (140-440); RED BLOOD COUNT 3.03 X10'6 (4.70-6.10); RED CELL DISTRIBUTION WIDTH 14.5 % (11.5-14.5); WHITE BLOOD COUNT 4.8 X10'3 (4.5-11.0)
[2018-03-14 06:20] LABS: ALANINE AMINOTRANSFERASE 53 U/L (12-78); ALBUMIN 2.3 G/DL (3.4-5.0); ALBUMIN/GLOBULIN RATIO 0.6 (1.1-1.5); ALKALINE PHOSPHATASE 93 IU/L (46-116); ANION GAP 10 (8-16); ASPARTATE AMINO TRANSFERASE 60 U/L (10-37); BILIRUBIN,TOTAL 0.3 MG/DL (0.1-1.0); BLOOD UREA NITROGEN 17 MG/DL (7-18); BUN/CREATININE RATIO 19.1 (5.4-32.0); CALCIUM 7.9 MG/DL (8.5-10.1); CHLORIDE 105 MMOL/L (99-107); CREATININE 0.89 MG/DL (0.60-1.10); GLUCOSE 170 MG/DL (70-104); SODIUM 142 MMOL/L (135-145); TOTAL CARBON DIOXIDE 26.9 MMOL/L (24-32); TOTAL PROTEIN 6.1 G/DL (6.4-8.2); eGFR 85 ML/MIN
[2018-03-14] MEDS: duloxetine 30mg CAPSULE.DR PO SCH (08:00)
[2018-03-14] MEDS: K and/or MAG REPLACEMENT MC SCH (08:00)
[2018-03-14] MEDS: lactobacillus rhamnosus 10,000 MMU CELLS/CAPSULE PO SCH ×2 (08:57→19:48)
[2018-03-14] MEDS: pantoprazole 40 MG vial IV SCH (08:57)
[2018-03-14] MEDS: OLANZapine 5mg rapidly disint. tablet PO SCH (08:57)
[2018-03-14] MEDS: CefTRIAXone/D5W-Rocephin 1gm 50 ML IV SCH (08:57)
[2018-03-14] MEDS: metoprolol tartrate 25mg tablet PO SCH ×2 (08:57→19:48)
[2018-03-14] MEDS: furosemide 40mg/4ml inj IV SCH ×2 (08:57→20:00)
[2018-03-14] MEDS: potassium Cl oral solution 20 MEQ/15 ML PO SCH ×2 (08:57→19:49)
[2018-03-14] MEDS: gabapentin 300mg capsule PO SCH ×3 (08:57→19:49)
[2018-03-14] MEDS: enoxaparin 60mg/0.6ml syringe SUBCUT SCH (08:58)
[2018-03-14] MEDS: aspirin 81mg tab.chew PO SCH (08:58)
[2018-03-14] MEDS: neomy sulf/bacitrac zn/polymixin b oint 14.2 gm tube TP SCH (08:59)
[2018-03-14] MEDS: albumin (human) 25% 100 ML IV solution IV SCH ×2 (12:06→20:00)
[2018-03-14] MEDS: normal saline 1000ml 1,000 ML IV SCH ×2 (12:52→22:30)
[2018-03-14] MEDS ORDERED: haloperidol lactate 5mg/ml inj IM ONE (18:00)
[2018-03-14] MEDS: atorvastatin 20mg tablet PO SCH (19:49)
[2018-03-14] MEDS: mirtazapine 15mg tablet PO SCH (19:49)
[2018-03-14] MEDS: HYDROcodone/acetaminophen 10/325mg tab PO PRN (20:16)
[2018-03-14] MEDS: insulin glargine (Lantus) pen - multi-dose SQ SCH (21:00)
[2018-03-14] MEDS: LORazepam 0.5 MG tablet PO PRN (23:14)
[2018-03-15] VITALS (24 sets, daily range): BP systolic 90–148; BP diastolic 41–89
[2018-03-15] MEDS ORDERED: guaiFENesin/codeine phos 10ml UD oral syrup PO PRN (01:05)
[2018-03-15] MEDS: ipratropium/albuterol 3ml nebule NEB SCH ×6 (02:40→22:20)
[2018-03-15] MEDS: HYDROcodone/acetaminophen 10/325mg tab PO PRN ×3 (04:25→19:43)
[2018-03-15 05:41] LABS: MAGNESIUM 2.1 MG/DL (1.5-2.4)
[2018-03-15 05:42] LABS: PREALBUMIN 12.9 MG/DL (19-36)
[2018-03-15 06:52] LABS: ALANINE AMINOTRANSFERASE 55 U/L (12-78); ALBUMIN 2.7 G/DL (3.4-5.0); ALBUMIN/GLOBULIN RATIO 0.7 (1.1-1.5); ALKALINE PHOSPHATASE 81 IU/L (46-116); ANION GAP 10 (8-16); ASPARTATE AMINO TRANSFERASE 63 U/L (10-37); BILIRUBIN,TOTAL 0.5 MG/DL (0.1-1.0); BLOOD UREA NITROGEN 19 MG/DL (7-18); BUN/CREATININE RATIO 21.6 (5.4-32.0); CALCIUM 8.8 MG/DL (8.5-10.1); CHLORIDE 102 MMOL/L (99-107); CREATININE 0.88 MG/DL (0.60-1.10); GLUCOSE 111 MG/DL (70-104); SODIUM 141 MMOL/L (135-145); TOTAL CARBON DIOXIDE 28.9 MMOL/L (24-32); TOTAL PROTEIN 6.5 G/DL (6.4-8.2); eGFR 86 ML/MIN
[2018-03-15 06:59] LABS: BASOPHILS # (AUTO) 0.1 X10'3 (0-0.2); BASOPHILS % (AUTO) 0.7 % (0-1); EOSINOPHILS # (AUTO) 0.3 X10'3 (0-0.9); HEMATOCRIT 31.2 % (42.0-52.0); HEMOGLOBIN 10.2 g/dl (14.0-17.9); LYMPHOCYTES # (AUTO) 1.9 X10'3 (1.1-4.8); LYMPHOCYTES % (AUTO) 26.9 % (21-51); MEAN CORPUSCULAR HEMOGLOBIN 31.4 PG (27.0-31.0); MEAN CORPUSCULAR HGB CONC 32.8 % (33.0-36.5); MEAN CORPUSCULAR VOLUME 95.7 FL (78-98); MEAN PLATELET VOLUME 9.3 FL (7.4-10.4); MONOCYTES # (AUTO) 0.6 X10'3 (0-0.9); MONOCYTES % (AUTO) 7.8 % (2-12); NEUTROPHILS # (AUTO) 4.4 X10'3 (1.8-7.7); NEUTROPHILS % (AUTO) 60.6 % (42-75); PLATELET COUNT 228 X10'3 (140-440); RED BLOOD COUNT 3.26 X10'6 (4.70-6.10); RED CELL DISTRIBUTION WIDTH 14.2 % (11.5-14.5); WHITE BLOOD COUNT 7.3 X10'3 (4.5-11.0)
[2018-03-15] MEDS: gabapentin 300mg capsule PO SCH ×3 (07:15→21:20)
[2018-03-15] MEDS: potassium Cl oral solution 20 MEQ/15 ML PO SCH ×2 (07:15→19:30)
[2018-03-15] MEDS: duloxetine 30mg CAPSULE.DR PO SCH (07:15)
[2018-03-15] MEDS: OLANZapine 5mg rapidly disint. tablet PO SCH (07:15)
[2018-03-15] MEDS: lactobacillus rhamnosus 10,000 MMU CELLS/CAPSULE PO SCH ×2 (07:15→19:30)
[2018-03-15] MEDS: LORazepam 0.5 MG tablet PO PRN ×2 (07:15→16:28)
[2018-03-15] MEDS: metroNIDAZOLE-Flagyl 500mg/NS 100ml IVPB IV SCH (07:15)
[2018-03-15] MEDS: metoprolol tartrate 25mg tablet PO SCH ×2 (07:15→19:30)
[2018-03-15] MEDS: aspirin 81mg tab.chew PO SCH (07:15)
[2018-03-15] MEDS: enoxaparin 60mg/0.6ml syringe SUBCUT SCH (07:16)
[2018-03-15] MEDS: furosemide 40mg/4ml inj IV SCH (07:16)
[2018-03-15] MEDS: pantoprazole 40 MG vial IV SCH (07:16)
[2018-03-15] MEDS: K and/or MAG REPLACEMENT MC SCH (08:00)
[2018-03-15] MEDS: CefTRIAXone/D5W-Rocephin 1gm 50 ML IV SCH (08:42)
[2018-03-15] MEDS: acyclovir 200 MG capsule PO SCH ×2 (13:34→21:21)
[2018-03-15] MEDS ORDERED: naproxen 500mg tablet PO SCH (20:00)
[2018-03-15] MEDS ORDERED: meclizine 12.5mg tablet PO PRN (20:00)
[2018-03-15] MEDS: insulin glargine (Lantus) pen - multi-dose SQ SCH (21:00)
[2018-03-15] MEDS: atorvastatin 20mg tablet PO SCH (21:21)
[2018-03-15] MEDS: mirtazapine 15mg tablet PO SCH (21:21)
[2018-03-16] MEDS: HYDROcodone/acetaminophen 10/325mg tab PO PRN (00:55)
[2018-03-16] MEDS ORDERED: LORazepam 2 mg/ml vial IV ONE (01:25)
[2018-03-16] MEDS ORDERED: mirtazapine 15mg tablet PO ONE (01:40)
[2018-03-16] MEDS ORDERED: non-formulary drug (Aspirin (Aspir 81) 1 TAB) PO SCH (08:00)
[2018-03-16] MEDS ORDERED: aspirin 81mg tab.chew PO SCH (08:00)
[2018-03-16] MEDS ORDERED: multivitamins, therapeutics tablet PO SCH (08:00)
== END 2018-03-16 01:55 | disposition left against medical advice (07) | DRG 871 ==
LOC: ER 10:39 → ED HOLD 13:34 → EDBEDREQ 15:04 → SUR 3N 15:22 → CICU 2S 03-11 01:56 → PCU 3S 03-15 23:52
PROVIDERS: ADMIT Family Medicine; ATTEND Internal Medicine Critical Care Medicine
PROC: 5A1945Z Respiratory Ventilation, 24-96 Consecutive Hours (ICD-10-PCS; principal; 2018-03-11)
PROC: 0BH17EZ Insertion of Endotracheal Airway into Trachea, Via Natural or Artificial Opening (ICD-10-PCS; 2018-03-11)
PROC: B3201ZZ Computerized Tomography (CT Scan) of Thoracic Aorta using Low Osmolar Contrast (ICD-10-PCS; 2018-03-11)
DX: A41.9 Sepsis, unspecified organism (principal); I21.4 Non-ST elevation (NSTEMI) myocardial infarction; J96.02 Acute respiratory failure with hypercapnia; L03.116 Cellulitis of left lower limb; I13.0 Hypertensive heart and chronic kidney disease with heart failure and stage 1 through stage 4 chronic kidney disease, or unspecified chronic kidney disease; N17.9 Acute kidney failure, unspecified; J44.1 Chronic obstructive pulmonary disease with (acute) exacerbation; E11.22 Type 2 diabetes mellitus with diabetic chronic kidney disease; E11.42 Type 2 diabetes mellitus with diabetic polyneuropathy; Z53.21 Procedure and treatment not carried out due to patient leaving prior to being seen by health care provider; E11.65 Type 2 diabetes mellitus with hyperglycemia; F41.9 Anxiety disorder, unspecified; F17.210 Nicotine dependence, cigarettes, uncomplicated; E78.5 Hyperlipidemia, unspecified; F12.90 Cannabis use, unspecified, uncomplicated; Z60.2 Problems related to living alone; I25.10 Atherosclerotic heart disease of native coronary artery without angina pectoris; I50.9 Heart failure, unspecified; N18.9 Chronic kidney disease, unspecified; Z90.49 Acquired absence of other specified parts of digestive tract; Z95.1 Presence of aortocoronary bypass graft; Z88.1 Allergy status to other antibiotic agents; Z88.2 Allergy status to sulfonamides; Z88.8 Allergy status to other drugs, medicaments and biological substances; Z79.899 Other long term (current) drug therapy; Z85.828 Personal history of other malignant neoplasm of skin; Z86.73 Personal history of transient ischemic attack (TIA), and cerebral infarction without residual deficits; Z79.84 Long term (current) use of oral hypoglycemic drugs; Z82.5 Family history of asthma and other chronic lower respiratory diseases
CPT/HCPCS: 36415; 36600; 70450; 71045; 71275; 80053; 80202; 81001; 82803; 82948; 83036; 83605; 83735; 83880; 84100; 84134; 84145; 84484; 85018; 85025; 85379; 85610; 85730; 87040; 87070; 87077; 93005; 93306; 93970; 94002; 94003; 94640; 94760; 96365; 96366; 97110; 97116; 97162; 97530; 99285; A6209; A6213; A6222; A6223; A6446; A6449; A7015; C1758; C9113; J0696; J1170; J1630; J1644; J1650; J1815; J1940; J2060; J2250; J3370; J3480; J3490; J7030; P9047; Q9967

== ENCOUNTER 2018-04-12 13:57 | Day surgery (SDC) | payer MEDICARE, MEDICAID ==
[~2018-04-12] VITALS: Ht 170.2 cm; Wt 86.6 kg
[2018-04-12] VITALS (10 sets, daily range): BP systolic 108–123; BP diastolic 55–71
[~2018-04-12 13:57] MED LIST changes: -AMOX-580 PO; +ASPI-611 PO; -CEFU500T66 PO; -CEPH250T PO; -DOXY100C43 PO; -INSU300I; +INSU300I SQ; +MECL-111 PO; -MECL12.584 PO; +METF1000 PO; -METO-539 PO; -ROSU10TA PO; +ROSU40TA PO; -etomidate 2mg/ml inj. ONE; -rocuronium 10mg/ml inj IV ONE
[2018-04-12] MEDS ORDERED: diphenhydrAMINE 25mg capsule PO PRN (14:15)
[2018-04-12] MEDS ORDERED: normal saline 1000ml 1,000 ML IV SCH (14:15)
[2018-04-12] MEDS ORDERED: LORazepam 0.5 MG tablet PO PRN (14:15)
[2018-04-12] MEDS ORDERED: ALB0.5UD IH (15:32)
[2018-04-12] MEDS ORDERED: DILT120C52 PO (15:38)
[2018-04-12] MEDS ORDERED: ISOS30TA6 PO (15:43)
[2018-04-12] MEDS ORDERED: MIRT30TA3 PO (15:44)
[2018-04-12 16:05] LABS: ALANINE AMINOTRANSFERASE 49 U/L (12-78); ALBUMIN 3.4 G/DL (3.4-5.0); ALKALINE PHOSPHATASE 79 IU/L (46-116); ANION GAP 7 (8-16); ASPARTATE AMINO TRANSFERASE 27 U/L (10-37); BILIRUBIN,TOTAL 0.5 MG/DL (0.1-1.0); BLOOD UREA NITROGEN 12 MG/DL (7-18); BUN/CREATININE RATIO 15.8 (5.4-32.0); CALCIUM 8.6 MG/DL (8.5-10.1); CHLORIDE 105 MMOL/L (99-107); CREATININE 0.76 MG/DL (0.60-1.10); GLUCOSE 85 MG/DL (70-104); POTASSIUM 5.2 MMOL/L (3.5-5.1); SODIUM 142 MMOL/L (135-145); TOTAL CARBON DIOXIDE 30.3 MMOL/L (24-32); TOTAL PROTEIN 6.8 G/DL (6.4-8.2); eGFR > 90 ML/MIN
[2018-04-12] MEDS ORDERED: midazolam 2 mg/2 ml injection ONE ×2 (16:18→17:04)
[2018-04-12] MEDS ORDERED: iohexol 350MG/ML 100ml bottle IV ONE (16:18)
[2018-04-12] MEDS ORDERED: fentaNYL/PF 50MCG/1 ML 2ML syringe ONE (16:18)
[2018-04-12] MEDS ORDERED: LIDOcaine 1% 30ml preserv. free vial ONE (16:18)
[2018-04-12] MEDS ORDERED: iohexol 350 MG/ML 50ML vial IV ONE (17:18)
== END 2018-04-12 20:15 | disposition home or self-care (01) ==
LOC: SSTAY O 13:57
PROVIDERS: ATTEND Internal Medicine Interventional Cardiology
DX: I25.708 Atherosclerosis of coronary artery bypass graft(s), unspecified, with other forms of angina pectoris (principal); I11.0 Hypertensive heart disease with heart failure; I50.9 Heart failure, unspecified; E78.5 Hyperlipidemia, unspecified; J44.9 Chronic obstructive pulmonary disease, unspecified; I49.8 Other specified cardiac arrhythmias; E11.9 Type 2 diabetes mellitus without complications; E66.9 Obesity, unspecified; M19.90 Unspecified osteoarthritis, unspecified site; F41.8 Other specified anxiety disorders; F19.21 Other psychoactive substance dependence, in remission; Z86.79 Personal history of other diseases of the circulatory system; Z68.29 Body mass index [BMI] 29.0-29.9, adult; Z85.828 Personal history of other malignant neoplasm of skin; Z95.5 Presence of coronary angioplasty implant and graft; Z95.1 Presence of aortocoronary bypass graft; Z79.82 Long term (current) use of aspirin; Z79.891 Long term (current) use of opiate analgesic; Z79.84 Long term (current) use of oral hypoglycemic drugs; Z79.4 Long term (current) use of insulin; Z88.1 Allergy status to other antibiotic agents; Z98.41 Cataract extraction status, right eye; Z98.42 Cataract extraction status, left eye; Z88.2 Allergy status to sulfonamides; Z86.73 Personal history of transient ischemic attack (TIA), and cerebral infarction without residual deficits; Z86.74 Personal history of sudden cardiac arrest; Z87.891 Personal history of nicotine dependence; Z87.01 Personal history of pneumonia (recurrent); Z90.49 Acquired absence of other specified parts of digestive tract; Z79.899 Other long term (current) drug therapy; Z88.8 Allergy status to other drugs, medicaments and biological substances; Z98.890 Other specified postprocedural states; Z82.49 Family history of ischemic heart disease and other diseases of the circulatory system; Z83.6 Family history of other diseases of the respiratory system
CPT/HCPCS: 36415; 80053; 93005; 93459; 93567; 99152; 99153; A6257; C1760; J1644; J2250; J3010; J3490; J7030; Q0163; Q9967; A4620; C1769

== ENCOUNTER 2019-07-15 07:20 | Inpatient (IN) | payer MEDICARE, MEDICAID ==
[2019-07-04 15:36] LABS: BASOPHILS % (AUTO) 0.6 % (0-1); EOSINOPHILS # (AUTO) 0.2 X10'3 (0-0.9); EOSINOPHILS % (AUTO) 2.7 % (0-6); LYMPHOCYTES # (AUTO) 2.8 X10'3 (1.1-4.8); LYMPHOCYTES % (AUTO) 36.3 % (21-51); MEAN CORPUSCULAR HEMOGLOBIN 31.7 PG (27.0-31.0); MEAN CORPUSCULAR HGB CONC 34.3 g/dL (33.0-36.5); MEAN CORPUSCULAR VOLUME 92.5 FL (78-98); MEAN PLATELET VOLUME 8.1 FL (7.4-10.4); MONOCYTES # (AUTO) 0.6 X10'3 (0-0.9); MONOCYTES % (AUTO) 7.6 % (2-12); NEUTROPHILS # (AUTO) 4.1 X10'3 (1.8-7.7); NEUTROPHILS % (AUTO) 52.8 % (42-75); PRE OP HEMATOCRIT 35.7 % (42.0-52.0); PRE OP HEMOGLOBIN 12.2 g/dL (14.0-17.9); PRE OP PLATELET COUNT 246 X10'3 (140-440); RED BLOOD COUNT 3.86 X10'6 (4.70-6.10); RED CELL DISTRIBUTION WIDTH 13.6 % (11.5-14.5)
[2019-07-04 15:59] LABS: HEMOGLOBIN A1C 7.3 % (4.5-6.2)
[2019-07-04 16:00] LABS: ALBUMIN 3.8 G/DL (3.4-5.0); ALBUMIN/GLOBULIN RATIO 1.1 (1.1-1.5); ALKALINE PHOSPHATASE 80 IU/L (46-116); BLOOD UREA NITROGEN 17 MG/DL (7-18); CALCIUM 9.3 MG/DL (8.5-10.1); CHLORIDE 105 MMOL/L (99-107); CREATININE 1.31 MG/DL (0.60-1.10); PRE OP ALT 32 U/L (30-65); PRE OP ANION GAP 8 (8-16); PRE OP AST 17 U/L (10-37); PRE OP BILIRUB, TOTAL 0.4 MG/DL (0.0-1.0); PRE OP GLUCOSE 119 MG/DL (70-104); PRE OP SODIUM 141 MMOL/L (135-145); TOTAL CARBON DIOXIDE 27.6 MMOL/L (24-32); TOTAL PROTEIN 7.3 G/DL (6.4-8.2); eGFR 54 ML/MIN
[~2019-07-15] VITALS: Ht 170.2 cm; Wt 90.7 kg
[2019-07-15] VITALS (20 sets, daily range): BP systolic 114–160; BP diastolic 49–91
[~2019-07-15 07:20] MED LIST changes: -ACYC200C PO; +CHOLECALCIFEROL; -DIFL5DRO RIGHTEYE; +DOCUMENT DATE & TIME OF BETA-BLOCKER PO ONE; -DULO-31 PO; +FISHOIL; +ISOS30TA6 PO; +LEVO50TA8 PO; +MAG; -MECL-111 PO; -MELO-100 PO; -MIRT30TA8 PO; -MUPI22OI30 TOP; -OFLO5DRO EACHEYE; -PANT20TA2 PO; -POTA20TA19 PO; +POTA8TAB3 PO; -ROSU40TA PO; -TIOT18CA3; +TRANEXAMIC ACID 1 GM IN NACL,ISO-OS 100 ML IV ONE; +[UNRECOGNIZED DRUG - OTHER]; +cefazolin/dext.iso 2gm/100ml 100 ML IV ONE; +famotidine 10mg tablet PO ONE; +ringers solution, lacted 1,000 ML IV SCH; +tranexamic acid inj. 900 MG in normal saline 100ml IV soln 100 ML IV ONE; +vancomycin inj 1,500 MG in normal saline 300ml IV soln IV ONE
[2019-07-15] MEDS ORDERED: tranexamic acid inj. 900 MG in normal saline 100ml IV soln 100 ML IV ONE (07:30)
[2019-07-15] MEDS ORDERED: LIDOcaine 1% (10mg/ml) 2ml vial ONE (08:18)
[2019-07-15] MEDS ORDERED: albuterol 2.5 MG/3 ML nebule NEB ONE ×2 (08:50→14:15)
[2019-07-15] MEDS ORDERED: ketorolac trometh. 30mg/ml inj. ONE ×2 (09:57→10:19)
[2019-07-15] MEDS ORDERED: ROPIVAcaine 0.5% (5mg/ml) 30ml vial ONE ×3 (09:57→11:15)
[2019-07-15] MEDS ORDERED: glycopyrrolate 0.2mg/ml inj ONE (10:27)
[2019-07-15] MEDS ORDERED: neostigmine methylsulfate 1 MG/ML 10ml vial ONE (10:27)
[2019-07-15] MEDS ORDERED: desflurane 240ml liquid inh. IH ONE (10:27)
[2019-07-15] MEDS ORDERED: LIDOcaine 1%/PF 5ML 10 MG/ML VIAL ONE (10:27)
[2019-07-15] MEDS ORDERED: dexamethasone sod phosphate 10mg/ml inj ONE (10:27)
[2019-07-15] MEDS ORDERED: fentaNYL/PF 50MCG/1 ML 2ML syringe ONE (10:39)
[2019-07-15] MEDS ORDERED: MIDAZolam 5mg/5ml vial ONE (10:39)
[2019-07-15] MEDS ORDERED: propofol inj 20 ML IV ONE (11:13)
[2019-07-15] MEDS ORDERED: rocuronium 10mg/ml inj IV ONE (11:14)
[2019-07-15] MEDS ORDERED: ondansetron/PF 4mg/2ml inj ONE (11:33)
[2019-07-15] MEDS ORDERED: ringers solution, lacted 1,000 ML IV SCH (11:57)
[2019-07-15] MEDS ORDERED: ondansetron/PF 4mg/2ml inj IV PRN ×2 (12:00→13:00)
[2019-07-15] MEDS ORDERED: meperidine/PF 25mg/ml syringe IV PRN ×3 (12:00)
[2019-07-15] MEDS ORDERED: morphine 4 MG/ML inj SYRINge IV PRN ×2 (12:00)
[2019-07-15] MEDS ORDERED: proCHLORperazine 10 MG/2 ml inj IV PRN (12:00)
[2019-07-15] MEDS ORDERED: ROPIVAcaine 0.2% (10 MG/5 ML) BOLUS INJECTION INTERSCALE PRN (12:10)
[2019-07-15] MEDS ORDERED: phenylephrine 10mg/ml inj. ONE (12:53)
[2019-07-15] MEDS ORDERED: nitroGLYCERIN 0.4mg SUBLingual tab SL SCH (13:00)
[2019-07-15] MEDS ORDERED: oxyCODONE IR 5mg (immed. release) tablet PO PRN ×2 (13:00)
[2019-07-15] MEDS ORDERED: acetaminophen 325mg tablet PO PRN (13:00)
[2019-07-15] MEDS ORDERED: diphenhydrAMINE 25mg capsule PO PRN ×2 (13:00)
[2019-07-15] MEDS ORDERED: HYDROmorphone inj. 0.5 MG/0.5 ML DISP.SYRIN IV PRN (13:00)
[2019-07-15] MEDS ORDERED: magnesium hydroxide 30ml (MOM) UD suspension PO PRN (13:00)
[2019-07-15] MEDS: gabapentin 300mg capsule PO SCH ×2 (13:00→20:05)
[2019-07-15] MEDS ORDERED: bisacodyl 10mg suppository rectal RC PRN (13:00)
[2019-07-15] MEDS ORDERED: tranexamic acid inj. 910 MG in normal saline 100ml IV soln 100 ML IV ONE ×2 (13:00→16:00)
--- NOTE | 2019-07-15 13:09 | NUR ---
Received from OR via BED, accompanied by Anesthesiologist DR WASHINGTON and report given by Anesthesiologist. PT DROWSY, DENIES PAIN, RIGHT SHOULDER W/DRSG, ICE PACK, SHOULDER WRAP, SLING, ISB CATHETER, CDI. Addendum: 07/15/19 at 1340 by Danay Blue RN Amended: Links added.
[2019-07-15] MEDS: acetaminophen 325mg tablet PO SCH ×2 (14:00→20:00)
[2019-07-15] MEDS: ROPIVAcaine 0.2%/PF PUMP/bolus 550 ML INTERSCALE SCH (14:27)
--- NOTE | 2019-07-15 14:50 | NUR ---
Received report from Danay in OR.
--- NOTE | 2019-07-15 14:59 | NUR ---
Report called to receiving nurse. Transferred via BED, 1 BAG OF PERSONAL Belongings, 1 DUFFLE BAG SENT W/PT TO ROOM 401, RECEIVING RN AT BEDSIDE TO RECEIVE PT, BLL, CALL LIGHT GIVEN, SIDE RAILS UP X 2. Special Issues communicated to receiving nurse. YES. Addendum: 07/15/19 at 1511 by Danay Blue RN Amended: Links added.
--- NOTE | 2019-07-15 15:49 | NUR ---
Report to Maritza SMITH
[2019-07-15] MEDS: ceFAZolin 1GM/D5W- ADD-VANTAGE 50 ML IV SCH ×2 (16:59→23:42)
[2019-07-15] MEDS: potassium cl 20mEq in 1/2 NS 1,000 ML IV SCH ×2 (16:59→20:06)
--- NOTE | 2019-07-15 18:30 | NUR ---
Patient in room ORTHO 4014. I have received report from SARAH Salas and had the opportunity to ask questions and assume patient care.
[2019-07-15] MEDS: metFORMIN 500mg tablet PO SCH (19:05)
[2019-07-15] MEDS ORDERED: vancomycin/NS 1 GM ADD-VANTAGE 250 ML IV SCH (20:00)
[2019-07-15] MEDS: furosemide 40mg tablet PO SCH (20:06)
[2019-07-15] MEDS: metoprolol tartrate 25mg tablet PO SCH (20:07)
[2019-07-15] MEDS ORDERED: sennosides 8.6mg tablet PO SCH (21:00)
[2019-07-15] MEDS: albuterol 2.5 MG/3 ML nebule NEB SCH (23:07)
[2019-07-16 00:47] VITALS: BP 134/72
[2019-07-16] MEDS: acetaminophen 325mg tablet PO SCH ×2 (02:00→08:00)
[2019-07-16] MEDS: potassium cl 20mEq in 1/2 NS 1,000 ML IV SCH (03:02)
[2019-07-16] MEDS: HYDROmorphone 1 mg/ml syringe IV PRN ×2 (03:20→09:47)
[2019-07-16 04:47] VITALS: BP 139/59
[2019-07-16] MEDS ORDERED: albuterol 2.5 MG/3 ML nebule NEB ONE (05:10)
[2019-07-16 06:00] VITALS: BP 139/59
[2019-07-16] MEDS: ROPIVAcaine 0.2%/PF PUMP/bolus 550 ML INTERSCALE SCH (06:46)
--- NOTE | 2019-07-16 06:47 | NUR ---
Problems reprioritized. Patient report given, questions answered & plan of care reviewed with SARAH Pearce.
--- NOTE | 2019-07-16 06:47 | NUR ---
Patient in room ORTHO 4014. I have received report from SARAH FONTENOT and had the opportunity to ask questions and assume patient care.
[2019-07-16] MEDS ORDERED: levoTHYROXINE 25mcg tablet PO SCH (07:00)
[2019-07-16 07:16] LABS: BASOPHILS # (AUTO) 0.1 X10'3 (0-0.2); BASOPHILS % (AUTO) 0.6 % (0-1); EOSINOPHILS % (AUTO) 0 % (0-6); HEMATOCRIT 35.2 % (42.0-52.0); LYMPHOCYTES # (AUTO) 1.4 X10'3 (1.1-4.8); MEAN CORPUSCULAR HGB CONC 34.1 g/dL (33.0-36.5); MEAN CORPUSCULAR VOLUME 90.8 FL (78-98); MEAN PLATELET VOLUME 8.2 FL (7.4-10.4); MONOCYTES % (AUTO) 7.4 % (2-12); NEUTROPHILS # (AUTO) 10.5 X10'3 (1.8-7.7); PLATELET COUNT 204 X10'3 (140-440); RED BLOOD COUNT 3.88 X10'6 (4.70-6.10); RED CELL DISTRIBUTION WIDTH 13.2 % (11.5-14.5)
[2019-07-16] MEDS: metFORMIN 500mg tablet PO SCH (07:26)
[2019-07-16] MEDS: gabapentin 300mg capsule PO SCH (07:26)
[2019-07-16] MEDS: furosemide 40mg tablet PO SCH (07:26)
[2019-07-16] MEDS: metoprolol tartrate 25mg tablet PO SCH (07:27)
[2019-07-16 07:45] LABS: ANION GAP 12 (8-16); CHLORIDE 99 MMOL/L (99-107); POTASSIUM 3.8 MMOL/L (3.5-5.1); SODIUM 139 MMOL/L (135-145); TOTAL CARBON DIOXIDE 28.1 MMOL/L (24-32)
[2019-07-16] MEDS ORDERED: isosorbide mononitrate 30mg tab.SR.24H PO SCH (08:00)
[2019-07-16] MEDS: albuterol 2.5 MG/3 ML nebule NEB SCH ×2 (08:30)
[2019-07-16] MEDS ORDERED: aspirin 325mg tablet PO SCH (08:30)
[2019-07-16 10:52] VITALS: BP 121/72
--- NOTE | 2019-07-16 11:33 | NUR ---
PATIENT WAS GIVEN AND EDUCATED ON ALL DISCHARGE INSTRUCTIONS BY RESOURCE FARHAT SMITH. PATIENT WAS DC'D WITH ALL PERSONAL BELONGINGS WELL ARM SLING AND ONQ BALL. PATIENT WAS ASSISTED OUT TO LOBBY IN WHEELCHAIR ACCOMPANIED BY FARHAT MERCADO RN. NO S/S OF APPARENT DISTRESS AND NO COMPLAINTS.
[2019-07-17] MEDS ORDERED: acetaminophen 325mg tablet PO PRN (13:00)
--- NOTE | 2019-07-19 14:55 | NUR ---
Case Management DC follow up: spoke to pt via telephone. doing fine, ambulating as tolerated. Denies SOB, resp distress, NV, dizziness, RESENDIZ, cp, emergent/acute general pain. Pt remains afebrile. Denies s/s infection to incision site R shoulder. no swelling, tenderness, redness to arm, fingers. Verbalizes understanding of meds, why prescribed. Went back to hospital to have onQ pump cath removed, it was located in neck as per pt. Advised pt to go over DC after care again. Verbalizes understanding after verbal education on after care. follow up w/Dr Dumont scheduled, PCP/Selvin went to appt already today 07/19/2019. pt reported needing assist w/meals, has IHSS hours, but did not have a conversation at the hospital about DC assist per pt. Pt given phone number to call to set up assist. Pt also verbalized Dr Montalvo is also assisting with getting a nurse out to visit pt. pt stated he would call [phone]. pt's main concern was meal prep. verbalizes understanding of s/s that would warrant 9-11/ER visit for evaluation. needs met, questions answered r/t pt physical aftercare. No further questions at this time
== END 2019-07-16 11:10 | disposition home or self-care (01) | DRG 483 ==
LOC: PAS IN 07:20 → EDSTATUS 11:15 → ORTHO 4S 14:50
PROVIDERS: ADMIT Orthopaedic Surgery; ATTEND Orthopaedic Surgery
PROC: 0LS30ZZ Reposition Right Upper Arm Tendon, Open Approach (ICD-10-PCS; 2019-07-15)
PROC: 3E0T3BZ Introduction of Anesthetic Agent into Peripheral Nerves and Plexi, Percutaneous Approach (ICD-10-PCS; 2019-07-15)
PROC: 0RRJ00Z Replacement of Right Shoulder Joint with Reverse Ball and Socket Synthetic Substitute, Open Approach (ICD-10-PCS; principal; 2019-07-15 10:27)
DX: M19.011 Primary osteoarthritis, right shoulder (principal); D62 Acute posthemorrhagic anemia; M75.121 Complete rotator cuff tear or rupture of right shoulder, not specified as traumatic; M25.511 Pain in right shoulder; K21.9 Gastro-esophageal reflux disease without esophagitis; E11.9 Type 2 diabetes mellitus without complications; I11.0 Hypertensive heart disease with heart failure; I25.10 Atherosclerotic heart disease of native coronary artery without angina pectoris; I50.9 Heart failure, unspecified; J44.9 Chronic obstructive pulmonary disease, unspecified; M65.811 Other synovitis and tenosynovitis, right shoulder; Z86.73 Personal history of transient ischemic attack (TIA), and cerebral infarction without residual deficits; Z87.891 Personal history of nicotine dependence; Z79.899 Other long term (current) drug therapy; Z79.82 Long term (current) use of aspirin; Z79.4 Long term (current) use of insulin
CPT/HCPCS: 36415; 80051; 80053; 82948; 83036; 84443; 85025; 87081; 94640; 94760; 97116; 97161; 97530; A4565; A4618; A7000; C1776; G0378; J0690; J1100; J1170; J1885; J2001; J2250; J2370; J2405; J2704; J2710; J2795; J3010; J3370; J3480; J3490; J7040; J7120; Q0163

== ENCOUNTER 2020-04-30 05:46 | Day surgery (SDC) | payer MEDICARE, MEDICAID ==
[2020-04-23 16:19] LABS: BASOPHILS # (AUTO) 0.1 X10'3 (0-0.2); BASOPHILS % (AUTO) 1.2 % (0-1); EOSINOPHILS # (AUTO) 0.4 X10'3 (0-0.9); EOSINOPHILS % (AUTO) 3.9 % (0-6); LYMPHOCYTES # (AUTO) 3.5 X10'3 (1.1-4.8); LYMPHOCYTES % (AUTO) 37.5 % (21-51); MEAN CORPUSCULAR HEMOGLOBIN 33.1 PG (27.0-31.0); MEAN CORPUSCULAR HGB CONC 35.3 g/dL (33.0-36.5); MEAN CORPUSCULAR VOLUME 93.7 FL (78-98); MEAN PLATELET VOLUME 8.3 FL (7.4-10.4); MONOCYTES # (AUTO) 0.6 X10'3 (0-0.9); MONOCYTES % (AUTO) 6.8 % (2-12); NEUTROPHILS # (AUTO) 4.7 X10'3 (1.8-7.7); NEUTROPHILS % (AUTO) 50.6 % (42-75); PRE OP HEMATOCRIT 37.3 % (42.0-52.0); PRE OP HEMOGLOBIN 13.2 g/dL (14.0-17.9); PRE OP PLATELET COUNT 223 X10'3 (140-440); RED BLOOD COUNT 3.99 X10'6 (4.70-6.10); RED CELL DISTRIBUTION WIDTH 13.4 % (11.5-14.5)
[2020-04-23 16:39] LABS: ALBUMIN 4.3 G/DL (3.4-5.0); ALBUMIN/GLOBULIN RATIO 1.2 (1.1-1.5); ALKALINE PHOSPHATASE 77 IU/L (46-116); BLOOD UREA NITROGEN 20 MG/DL (7-18); BUN/CREATININE RATIO 13.4 (5.4-32.0); CALCIUM 9.3 MG/DL (8.5-10.1); CHLORIDE 99 MMOL/L (99-107); CREATININE 1.49 MG/DL (0.60-1.10); PRE OP ALT 48 U/L (30-65); PRE OP ANION GAP 9 (8-16); PRE OP AST 24 U/L (10-37); PRE OP BILIRUB, TOTAL 0.5 MG/DL (0.0-1.0); PRE OP GLUCOSE 124 MG/DL (70-104); PRE OP POTASSIUM 3.4 MMOL/L (3.4-5.1); PRE OP SODIUM 139 MMOL/L (135-145); TOTAL CARBON DIOXIDE 30.6 MMOL/L (24-32); TOTAL PROTEIN 7.9 G/DL (6.4-8.2); eGFR 47 ML/MIN
[~2020-04-30] VITALS: Ht 170.2 cm; Wt 92.6 kg
[2020-04-30 05:40] VITALS: BP 121/70
[~2020-04-30 05:46] MED LIST changes: +HYDR-3965 PO; +MULT-620 PO; -MULT1TAB74 PO; -TRANEXAMIC ACID 1 GM IN NACL,ISO-OS 100 ML IV ONE; +ceFAZolin 2gm in dextrose, iso 50 ML IV ONE; -cefazolin/dext.iso 2gm/100ml 100 ML IV ONE; -famotidine 10mg tablet PO ONE; +famotidine 20mg tablet PO ONE; -tranexamic acid inj. 900 MG in normal saline 100ml IV soln 100 ML IV ONE; -vancomycin inj 1,500 MG in normal saline 300ml IV soln IV ONE
[2020-04-30] MEDS ORDERED: BUPIVAcaine/PF 2.5mg/ml (0.25%) 10ml vial ONE (06:59)
[2020-04-30] MEDS ORDERED: morphine 4 MG/ML inj SYRINge IV PRN (07:20)
[2020-04-30] MEDS ORDERED: labetalol 20mg/4ml (5mg/ml) syringe IV PRN (07:20)
[2020-04-30] MEDS ORDERED: hydrALAZINE 20mg/ml inj. IV PRN (07:20)
[2020-04-30] MEDS ORDERED: ondansetron/PF 4mg/2ml inj IV PRN (07:20)
[2020-04-30] MEDS ORDERED: ringers solution, lacted 1,000 ML IV SCH (07:20)
[2020-04-30] MEDS ORDERED: morphine 2 MG/ML inj. syringe IV PRN (07:20)
[2020-04-30] MEDS ORDERED: fentaNYL/PF 50MCG/1 ML 2ML syringe IV PRN ×2 (07:20)
[2020-04-30] MEDS ORDERED: LIDOcaine 0.5% (5mg/ml) 50ml vial ONE (07:24)
[2020-04-30] MEDS ORDERED: MIDAZolam 1mg/ml 10ml vial ONE (07:27)
[2020-04-30] MEDS ORDERED: fentaNYL/PF 50MCG/1 ML 2ML syringe ONE (07:27)
[2020-04-30] MEDS ORDERED: BUPIVAcaine/PF 2.5mg/ml (0.25%) 10ml vial IJ ONE (08:43)
[2020-04-30 09:12] VITALS: BP 127/79
--- NOTE | 2020-04-30 09:12 | NUR ---
Received from OR via [facility], accompanied by Anesthesiologist Alexis and report given by Anesthesiolgist. VS stable, pt responsive to questions. Right hand wrapped, some fingers exposed, good cap refill. No pain.
[2020-04-30 09:20] VITALS: BP 127/82
[2020-04-30 09:30] VITALS: BP 118/89
--- NOTE | 2020-04-30 10:02 | NUR ---
Pt discharged to vehicle without incident by wheelchair in his own belongings. IV was dc'd. Dressing remains CDI. A call was made to Dr Yuen's medical radiation therapist to ask whether an order for noro had been made per pt's request because he "needs some and can't remember". I received no call back. Pt's pain is 0/10. he states he will call his pharmacy later today to see if and order was sent in. Otherwise he verbalized all other understanding of DC instructions.
== END 2020-04-30 10:02 | disposition home or self-care (01) ==
LOC: PAS 05:46
PROVIDERS: ATTEND Orthopaedic Surgery Hand Surgery
DX: M19.041 Primary osteoarthritis, right hand (principal); J45.909 Unspecified asthma, uncomplicated; F41.9 Anxiety disorder, unspecified; F32.9 Major depressive disorder, single episode, unspecified; E11.40 Type 2 diabetes mellitus with diabetic neuropathy, unspecified; E03.9 Hypothyroidism, unspecified; E11.22 Type 2 diabetes mellitus with diabetic chronic kidney disease; I13.0 Hypertensive heart and chronic kidney disease with heart failure and stage 1 through stage 4 chronic kidney disease, or unspecified chronic kidney disease; I50.9 Heart failure, unspecified; N18.30 Chronic kidney disease, stage 3 unspecified; I25.2 Old myocardial infarction; Z20.828 Contact with and (suspected) exposure to other viral communicable diseases; Z79.899 Other long term (current) drug therapy; Z95.1 Presence of aortocoronary bypass graft; Z98.890 Other specified postprocedural states; Z87.891 Personal history of nicotine dependence; Z86.73 Personal history of transient ischemic attack (TIA), and cerebral infarction without residual deficits; Z79.82 Long term (current) use of aspirin; Z72.89 Other problems related to lifestyle; Z79.4 Long term (current) use of insulin; Z82.49 Family history of ischemic heart disease and other diseases of the circulatory system
CPT/HCPCS: 26530; 36415; 80053; 82948; 85025; 87635; 93005; A6222; J2001; J2250; J3010; J3490; L8630; A4215; A4618; A6449; J7120

== ENCOUNTER 2021-01-18 05:32 | Day surgery (SDC) | payer MEDICARE, MEDICAID ==
[2020-12-28 14:24] LABS: BASOPHILS # (AUTO) 0.1 X10'3 (0-0.2); BASOPHILS % (AUTO) 0.8 % (0-1); EOSINOPHILS # (AUTO) 0.2 X10'3 (0-0.9); LYMPHOCYTES # (AUTO) 2.5 X10'3 (1.1-4.8); LYMPHOCYTES % (AUTO) 31.3 % (21-51); MEAN CORPUSCULAR HEMOGLOBIN 32.3 PG (27.0-31.0); MEAN CORPUSCULAR HGB CONC 35.4 g/dL (33.0-36.5); MEAN CORPUSCULAR VOLUME 91.2 FL (78-98); MEAN PLATELET VOLUME 7.1 FL (7.4-10.4); MONOCYTES # (AUTO) 0.5 X10'3 (0-0.9); MONOCYTES % (AUTO) 6.5 % (2-12); NEUTROPHILS # (AUTO) 4.6 X10'3 (1.8-7.7); NEUTROPHILS % (AUTO) 58.4 % (42-75); PRE OP HEMATOCRIT 33.1 % (42.0-52.0); PRE OP HEMOGLOBIN 11.7 g/dL (14.0-17.9); PRE OP PLATELET COUNT 185 X10'3 (140-440); RED BLOOD COUNT 3.63 X10'6 (4.70-6.10); RED CELL DISTRIBUTION WIDTH 13.6 % (11.5-14.5)
[2020-12-28 14:40] LABS: ALBUMIN 3.9 G/DL (3.4-5.0); ALBUMIN/GLOBULIN RATIO 1.1 (1.1-1.5); ALKALINE PHOSPHATASE 62 IU/L (46-116); BLOOD UREA NITROGEN 24 MG/DL (7-18); BUN/CREATININE RATIO 12.6 (5.4-32.0); CALCIUM 8.7 MG/DL (8.5-10.1); CHLORIDE 99 MMOL/L (99-107); PRE OP ALT 35 U/L (30-65); PRE OP ANION GAP 12 (8-16); PRE OP AST 16 U/L (10-37); PRE OP BILIRUB, TOTAL 0.4 MG/DL (0.0-1.0); PRE OP GLUCOSE 143 MG/DL (70-104); PRE OP POTASSIUM 3.9 MMOL/L (3.4-5.1); PRE OP SODIUM 139 MMOL/L (135-145); TOTAL CARBON DIOXIDE 27.7 MMOL/L (24-32); TOTAL PROTEIN 7.5 G/DL (6.4-8.2); eGFR 35 ML/MIN
[~2021-01-18] VITALS: Ht 170.2 cm; Wt 88.0 kg
[2021-01-18] VITALS (7 sets, daily range): BP systolic 123–162; BP diastolic 78–93
[~2021-01-18 05:32] MED LIST changes: +ALBU0.63 NEB; +DULO-31 PO; -HYDR-3965 PO; -INSU300I SQ; -ISOS30TA6 PO; +ISOS30TA84 PO; +LOP25T PO; -METO25TA6 PO; +TIOT4MIS5 INH; -ceFAZolin 2gm in dextrose, iso 50 ML IV ONE; +cefazolin/dext.iso 2gm/100ml IV ONE
[2021-01-18] MEDS ORDERED: BUPIVAcaine/PF 2.5mg/ml (0.25%) 10ml vial ONE (06:58)
[2021-01-18] MEDS ORDERED: fentaNYL/PF 50MCG/1 ML 2ML syringe ONE (07:17)
[2021-01-18] MEDS ORDERED: LIDOcaine 0.5% (5mg/ml) 50ml vial ONE (07:18)
[2021-01-18] MEDS ORDERED: propofol inj 20 ML IV ONE (07:18)
[2021-01-18] MEDS ORDERED: midazolam 1 mg/ML 2ml injection ONE (07:18)
[2021-01-18] MEDS ORDERED: meperidine/PF 25mg/ml syringe IV PRN ×3 (07:35)
[2021-01-18] MEDS ORDERED: morphine 4 MG/ML inj SYRINge IV PRN (07:35)
[2021-01-18] MEDS ORDERED: morphine 2 MG/ML inj. syringe IV PRN (07:35)
[2021-01-18] MEDS ORDERED: ondansetron/PF 4mg/2ml inj IV PRN (07:35)
[2021-01-18] MEDS ORDERED: proCHLORperazine 10 MG/2 ml inj IV PRN (07:35)
[2021-01-18] MEDS ORDERED: ringers solution, lacted 1,000 ML IV SCH (07:35)
--- NOTE | 2021-01-18 08:22 | NUR ---
Received from OR via [facility] , accompanied by Anesthesiologist MIGUELITO and report given by Anesthesiolgist. PATIENT WITH 20G PIV IN LEFT UE RUNNING LR AT 100. DENIES PAIN AT THIS TIME. SPLINT TO RIGHT UE THAT IS CDI. + CAP REFILL TO FINGERS. Addendum: 01/18/21 at 0828 by Patrick Morton RN, RN Amended: Links added.
--- NOTE | 2021-01-18 09:02 | NUR ---
ALL DISCHARGE CRITERIA HAS BEEN MET. VSS, PAIN AT A TOLERABLE LEVEL, VOIDING AND ABLE TO SAFELY AMBULATE AND TRANSFER SELF. IV TAKEN OUT WITHOUT ANY COMPLICATIONS. ALL DISCHARGE INSTRUCTIONS COVERED WITH PATIENT AND ALL QUESTIONS ANSWERED. PATIENT TAKEN OUT VIA WHEELCHAIR TO PERSONAL VEHICLE WHERE FAMILY/FRIEND DROVE PATIENT HOME. Addendum: 01/18/21 at 0903 by Patrick Morton RN, RN Amended: Links added.
--- NOTE | 2021-01-18 09:25 | NUR ---
Received from OR via [facility] , accompanied by Anesthesiologist JESE and report given by Anesthesiolgist. PATIENT WITH 20G PIV IN LEFT UE RUNNING LR AT 100, DENIES PAIN TO RIGHT WRIST THAT HAS BIAS WRAP ON THAT IS CDI. + CAP REFILL TO FINGERS.
== END 2021-01-18 09:02 | disposition home or self-care (01) ==
LOC: PAS 05:32
PROVIDERS: ATTEND Orthopaedic Surgery Hand Surgery
DX: M65.321 Trigger finger, right index finger (principal); M24.541 Contracture, right hand; M19.041 Primary osteoarthritis, right hand; M19.011 Primary osteoarthritis, right shoulder; M17.12 Unilateral primary osteoarthritis, left knee; I11.0 Hypertensive heart disease with heart failure; I50.9 Heart failure, unspecified; I25.2 Old myocardial infarction; J45.909 Unspecified asthma, uncomplicated; F41.9 Anxiety disorder, unspecified; F32.9 Major depressive disorder, single episode, unspecified; M54.30 Sciatica, unspecified side; E11.40 Type 2 diabetes mellitus with diabetic neuropathy, unspecified; E03.9 Hypothyroidism, unspecified; Z87.891 Personal history of nicotine dependence; Z72.89 Other problems related to lifestyle; Z79.4 Long term (current) use of insulin; Z96.611 Presence of right artificial shoulder joint; Z79.82 Long term (current) use of aspirin; Z79.899 Other long term (current) drug therapy; Z98.890 Other specified postprocedural states; Z86.73 Personal history of transient ischemic attack (TIA), and cerebral infarction without residual deficits; Z85.820 Personal history of malignant melanoma of skin; Z82.49 Family history of ischemic heart disease and other diseases of the circulatory system; Z83.6 Family history of other diseases of the respiratory system
CPT/HCPCS: 26055; 26445; 26520; 36415; 80053; 82948; 85025; 93005; J2001; J2250; J2704; J3010; J3490; Z7506; Z7512; A4215; A4618; J7120

== ENCOUNTER 2021-02-08 05:46 | Day surgery (SDC) | payer MEDICARE, MEDICAID ==
[2021-01-29 16:05] LABS: BASOPHILS # (AUTO) 0.1 X10'3 (0-0.2); BASOPHILS % (AUTO) 0.9 % (0-1); EOSINOPHILS # (AUTO) 0.3 X10'3 (0-0.9); EOSINOPHILS % (AUTO) 3.7 % (0-6); LYMPHOCYTES # (AUTO) 3.1 X10'3 (1.1-4.8); LYMPHOCYTES % (AUTO) 34.2 % (21-51); MEAN CORPUSCULAR HEMOGLOBIN 31.3 PG (27.0-31.0); MEAN CORPUSCULAR HGB CONC 33.9 g/dL (33.0-36.5); MEAN CORPUSCULAR VOLUME 92.2 FL (78-98); MONOCYTES # (AUTO) 0.7 X10'3 (0-0.9); MONOCYTES % (AUTO) 7.2 % (2-12); NEUTROPHILS # (AUTO) 4.9 X10'3 (1.8-7.7); PRE OP HEMATOCRIT 35.4 % (42.0-52.0); PRE OP PLATELET COUNT 235 X10'3 (140-440); RED BLOOD COUNT 3.84 X10'6 (4.70-6.10); RED CELL DISTRIBUTION WIDTH 13.6 % (11.5-14.5)
[2021-01-29 16:15] LABS: CLARITY,URINE CLEAR (Clear); COLOR,URINE STRAW (Yellow); GLUCOSE, URINE NEGATIVE (Neg); KETONES,URINE NEGATIVE (Neg); LEUKOCYTE ESTERASE ,URINE NEGATIVE (Neg); NITRITES, URINE NEGATIVE (Neg); OCCULT BLOOD,URINE NEGATIVE (Neg); PROTEIN,URINE NEGATIVE (Neg); UROBILINOGEN,URINE 0.2 E.U/dL (0.2-1.0)
[2021-01-29 16:23] LABS: ALBUMIN 3.9 G/DL (3.4-5.0); ALBUMIN/GLOBULIN RATIO 1.1 (1.1-1.5); ALKALINE PHOSPHATASE 68 IU/L (46-116); BLOOD UREA NITROGEN 27 MG/DL (7-18); BUN/CREATININE RATIO 14.8 (5.4-32.0); CALCIUM 8.6 MG/DL (8.5-10.1); CHLORIDE 100 MMOL/L (99-107); CREATININE 1.82 MG/DL (0.60-1.10); PRE OP ALT 30 U/L (30-65); PRE OP ANION GAP 10 (8-16); PRE OP AST 17 U/L (10-37); PRE OP BILIRUB, TOTAL 0.3 MG/DL (0.0-1.0); PRE OP GLUCOSE 77 MG/DL (70-104); PRE OP POTASSIUM 3.8 MMOL/L (3.4-5.1); PRE OP SODIUM 139 MMOL/L (135-145); TOTAL CARBON DIOXIDE 29.4 MMOL/L (24-32); TOTAL PROTEIN 7.5 G/DL (6.4-8.2); eGFR 37 ML/MIN
[2021-01-29 16:27] LABS: UA COLLECTION TYPE CLN CATCH MIDSTREAM
[~2021-02-08] VITALS: Ht 170.2 cm; Wt 87.7 kg
[2021-02-08 06:15] VITALS: BP 148/78
[2021-02-08] MEDS ORDERED: BUPIVAcaine 0.5% inj/PF 30 ML ONE (06:50)
[2021-02-08] MEDS ORDERED: bacitracin 15gm ointment TP ONE (06:50)
[2021-02-08] MEDS ORDERED: sevoflurane 250ml liquid IH ONE (08:12)
[2021-02-08] MEDS ORDERED: fentaNYL/PF 50MCG/1 ML 2ML syringe ONE (08:13)
[2021-02-08] MEDS ORDERED: etomidate 2mg/ml inj. ONE (08:14)
[2021-02-08] MEDS ORDERED: ondansetron/PF 4mg/2ml inj ONE (08:41)
[2021-02-08] MEDS ORDERED: ringers solution, lacted 1,000 ML IV SCH (08:45)
[2021-02-08] MEDS ORDERED: morphine 4 MG/ML inj SYRINge IV PRN (08:45)
[2021-02-08] MEDS ORDERED: fentaNYL/PF 50MCG/1 ML 2ML syringe IV PRN ×2 (08:45)
[2021-02-08] MEDS ORDERED: labetalol 20mg/4ml (5mg/ml) syringe IV PRN (08:45)
[2021-02-08] MEDS ORDERED: morphine 2 MG/ML inj. syringe IV PRN (08:45)
[2021-02-08] MEDS ORDERED: hydrALAZINE 20mg/ml inj. IV PRN (08:45)
[2021-02-08] MEDS ORDERED: ondansetron/PF 4mg/2ml inj IV PRN (08:45)
[2021-02-08 09:25] VITALS: BP 161/74
--- NOTE | 2021-02-08 09:25 | NUR ---
ASSUME CARE PT AWAKE ALERT VSS BOOT TO RIGHT LEG CDI +CMS IV TO RIGHT HAND 20 G Addendum: 02/08/21 at 0943 by Eunice El RN Amended: Links added.
[2021-02-08 09:30] VITALS: BP 141/74
[2021-02-08 09:45] VITALS: BP 142/75
[2021-02-08 09:55] VITALS: BP 122/72
--- NOTE | 2021-02-08 09:55 | NUR ---
PT SITTING UP IN BED SURESH PO'S DENIES PAIN +CMS TO RIGHT FOOT VSS MEETS CRITERIA TO DC HOME. DC INSTR GIVEN RIDE CALLED. Addendum: 02/08/21 at 1033 by Eunice El RN Amended: Links added.
== END 2021-02-08 10:05 | disposition home or self-care (01) ==
LOC: PAS 05:46
PROVIDERS: ATTEND Podiatrist Foot & Ankle Surgery
DX: M20.21 Hallux rigidus, right foot (principal); G89.18 Other acute postprocedural pain; Z20.822 Contact with and (suspected) exposure to COVID-19; I11.0 Hypertensive heart disease with heart failure; I50.9 Heart failure, unspecified; E66.9 Obesity, unspecified; Z68.30 Body mass index [BMI] 30.0-30.9, adult; I25.2 Old myocardial infarction; E03.9 Hypothyroidism, unspecified; E11.40 Type 2 diabetes mellitus with diabetic neuropathy, unspecified; F41.9 Anxiety disorder, unspecified; F32.9 Major depressive disorder, single episode, unspecified; M17.12 Unilateral primary osteoarthritis, left knee; J45.909 Unspecified asthma, uncomplicated; Z86.73 Personal history of transient ischemic attack (TIA), and cerebral infarction without residual deficits; Z85.820 Personal history of malignant melanoma of skin; Z88.2 Allergy status to sulfonamides; Z88.8 Allergy status to other drugs, medicaments and biological substances; Z95.1 Presence of aortocoronary bypass graft; Z98.890 Other specified postprocedural states; Z96.611 Presence of right artificial shoulder joint; Z79.899 Other long term (current) drug therapy; Z79.82 Long term (current) use of aspirin; Z79.4 Long term (current) use of insulin; Z72.89 Other problems related to lifestyle; Z87.891 Personal history of nicotine dependence; Z82.49 Family history of ischemic heart disease and other diseases of the circulatory system; Z83.6 Family history of other diseases of the respiratory system
CPT/HCPCS: 28750; 36415; 64447; 64450; 73620; 76000; 80053; 81003; 82948; 85025; A6223; C1713; J2405; J3010; J7120; U0003; U0005; Z7506; Z7508; Z7512; A4215; A4618; A6253; A6449; A7000

== ENCOUNTER 2021-10-11 16:04 | Emergency (ER) | payer MEDICARE, MEDICAID ==
[~2021-10-11] VITALS: Ht 170.2 cm; Wt 81.0 kg
[~2021-10-11 16:04] MED LIST changes: -DOCUMENT DATE & TIME OF BETA-BLOCKER PO ONE; -POTA8TAB3 PO; +POTA8TAB69 PO; -cefazolin/dext.iso 2gm/100ml IV ONE; -famotidine 20mg tablet PO ONE; -ringers solution, lacted 1,000 ML IV SCH
[2021-10-11 16:49] LABS: BASOPHILS # (AUTO) 0.1 X10'3 (0-0.2); BASOPHILS % (AUTO) 1.3 % (0-1); EOSINOPHILS # (AUTO) 0.2 X10'3 (0-0.9); EOSINOPHILS % (AUTO) 2.4 % (0-6); HEMATOCRIT 33.6 % (42.0-52.0); HEMOGLOBIN 11.7 g/dl (14.0-17.9); LYMPHOCYTES % (AUTO) 28.9 % (21-51); MEAN CORPUSCULAR HEMOGLOBIN 31.8 PG (27.0-31.0); MEAN CORPUSCULAR HGB CONC 34.8 g/dL (33.0-36.5); MEAN CORPUSCULAR VOLUME 91.4 FL (78-98); MEAN PLATELET VOLUME 7.5 FL (7.4-10.4); MONOCYTES # (AUTO) 0.5 X10'3 (0-0.9); MONOCYTES % (AUTO) 7.6 % (2-12); NEUTROPHILS # (AUTO) 4.1 X10'3 (1.8-7.7); NEUTROPHILS % (AUTO) 59.8 % (42-75); PLATELET COUNT 329 X10'3 (140-440); RED BLOOD COUNT 3.68 X10'6 (4.70-6.10); RED CELL DISTRIBUTION WIDTH 13.7 % (11.5-14.5); WHITE BLOOD COUNT 6.8 X10'3 (4.5-11.0)
[2021-10-11 17:06] LABS: ALANINE AMINOTRANSFERASE 50 U/L (12-78); ALBUMIN 3.9 G/DL (3.4-5.0); ALBUMIN/GLOBULIN RATIO 0.9 (1.1-1.5); ALKALINE PHOSPHATASE 89 IU/L (46-116); ANION GAP 12 (8-16); ASPARTATE AMINO TRANSFERASE 27 U/L (10-37); BILIRUBIN,TOTAL 0.4 MG/DL (0.1-1.0); BLOOD UREA NITROGEN 30 MG/DL (7-18); BUN/CREATININE RATIO 18.3 (5.4-32.0); CALCIUM 9.8 MG/DL (8.5-10.1); CHLORIDE 103 MMOL/L (99-107); CREATININE 1.64 MG/DL (0.60-1.10); GLUCOSE 89 MG/DL (70-104); POTASSIUM 4.4 MMOL/L (3.5-5.1); SODIUM 139 MMOL/L (135-145); TOTAL CARBON DIOXIDE 24.5 MMOL/L (24-32); TOTAL PROTEIN 8.1 G/DL (6.4-8.2); eGFR 42 ML/MIN
[2021-10-11] MEDS ORDERED: ondansetron/PF 4mg/2ml inj IV ONE (17:10)
--- NOTE | 2021-10-11 17:25 | NUR ---
Pt stating he no longer wishes to stay and be treated. States he cannot breathe and wants to take his leads off. MD aware.
[2021-10-11 18:33] VITALS: BP 117/77
--- NOTE | 2021-10-11 18:58 | NUR ---
pt demanding medication, explained to pt that there is no medication ordered at this time, pt started yelling Dr Crenshaw's name and pt began taking monitor off, Dr Crenshaw at bedside, pt began call nurse "bitch" Dr Crenshaw asked the pt please stop. pt refused and began demanding medication again. Dr Crenshaw at this time stated the pt would be leaving ama. Security called to bedside. IV removed cannula intact, pt escorted from department by security
== END 2021-10-11 19:04 | disposition home or self-care (01) ==
LOC: ER 16:05
DX: R07.9 Chest pain, unspecified (principal); I50.9 Heart failure, unspecified; J44.9 Chronic obstructive pulmonary disease, unspecified; E11.9 Type 2 diabetes mellitus without complications; F41.9 Anxiety disorder, unspecified; F12.10 Cannabis abuse, uncomplicated
CPT/HCPCS: 36415; 71045; 80053; 83880; 84484; 85025; 93005; 99285

== ENCOUNTER 2022-10-28 19:01 | Emergency (ER) | payer MEDICARE, MEDICAID ==
[~2022-10-28] VITALS: Ht 170.2 cm; Wt 79.1 kg
[~2022-10-28 19:01] MED LIST changes: +ACYC200C30 PO; -ALBU0.63 NEB; +ASPI-1265 PO; -ASPI-611 PO; +BUSP15TA7 PO; -CHOLECALCIFEROL; -DULA1.5P; +DULA1.5P SQ; -DULO-31 PO; +ESCI-8 PO; -FISHOIL; -GABA-532 PO; +LISI10TA27 PO; -LOP25T PO; -MAG; +METF-438 PO; -METF1000 PO; +METO25TA6 PO; -MULT-620 PO; +NITR0.4T48 SL; -NITR0.4T51 SL; +POTA-207 PO; -POTA8TAB69 PO; +ROSU40TA22 PO; -TIOT4MIS5 INH; +TRAM50TA2 PO; -[UNRECOGNIZED DRUG - OTHER]
[2022-10-28 20:23] LABS: BASOPHILS # (AUTO) 0.1 X10'3 (0-0.2); BASOPHILS % (AUTO) 0.9 % (0-1); EOSINOPHILS # (AUTO) 0.2 X10'3 (0-0.9); EOSINOPHILS % (AUTO) 2.9 % (0-6); HEMATOCRIT 31.7 % (42.0-52.0); HEMOGLOBIN 10.8 g/dl (14.0-17.9); LYMPHOCYTES # (AUTO) 2.6 X10'3 (1.1-4.8); LYMPHOCYTES % (AUTO) 34.7 % (21-51); MEAN CORPUSCULAR HEMOGLOBIN 31.1 PG (27.0-31.0); MEAN CORPUSCULAR VOLUME 91.4 FL (78-98); MEAN PLATELET VOLUME 7.8 FL (7.4-10.4); MONOCYTES # (AUTO) 0.8 X10'3 (0-0.9); MONOCYTES % (AUTO) 10.8 % (2-12); NEUTROPHILS # (AUTO) 3.8 X10'3 (1.8-7.7); NEUTROPHILS % (AUTO) 50.7 % (42-75); PLATELET COUNT 196 X10'3 (140-440); RED BLOOD COUNT 3.47 X10'6 (4.70-6.10); RED CELL DISTRIBUTION WIDTH 13.5 % (11.5-14.5); WHITE BLOOD COUNT 7.5 X10'3 (4.5-11.0)
[2022-10-28 20:39] LABS: ALANINE AMINOTRANSFERASE 41 U/L (12-78); ALBUMIN 3.8 G/DL (3.4-5.0); ALBUMIN/GLOBULIN RATIO 1.2 (1.1-1.5); ALKALINE PHOSPHATASE 86 IU/L (46-116); ANION GAP 11 (8-16); ASPARTATE AMINO TRANSFERASE 20 U/L (10-37); BILIRUBIN,TOTAL 0.5 MG/DL (0.1-1.0); BLOOD UREA NITROGEN 28 MG/DL (7-18); BUN/CREATININE RATIO 14.1 (10.0-20.0); CALCIUM 9.4 MG/DL (8.5-10.1); CHLORIDE 101 MMOL/L (99-107); CREATININE 1.98 MG/DL (0.60-1.10); GLUCOSE 104 MG/DL (70-104); POTASSIUM 4.3 MMOL/L (3.5-5.1); SODIUM 139 MMOL/L (135-145); TOTAL CARBON DIOXIDE 26.9 MMOL/L (24-32); eGFR 33 ML/MIN
[2022-10-28 22:55] VITALS: BP 125/78
== END 2022-10-28 22:56 | disposition home or self-care (01) ==
LOC: ER 19:02
DX: R53.1 Weakness (principal); N18.9 Chronic kidney disease, unspecified; J44.9 Chronic obstructive pulmonary disease, unspecified; E11.9 Type 2 diabetes mellitus without complications; F41.9 Anxiety disorder, unspecified; Z90.49 Acquired absence of other specified parts of digestive tract; Z88.2 Allergy status to sulfonamides; Z88.8 Allergy status to other drugs, medicaments and biological substances; Z79.899 Other long term (current) drug therapy
CPT/HCPCS: 36415; 71045; 80053; 83880; 84484; 85025; 93005; 99285

== ENCOUNTER 2025-02-09 12:04 | Day surgery (SDC) | payer MEDICARE, MEDICAID ==
[2025-02-02 15:03] LABS: MEAN PLATELET VOLUME 7.7 FL (7.4-10.4); PRE OP HEMATOCRIT 33.4 % (42.0-52.0); PRE OP HEMOGLOBIN 11.4 g/dL (14.0-17.9); PRE OP PLATELET COUNT 148 X10'3 (140-440); PRE OP WHITE BLOOD COUNT 5.9 10'3 (4.8-10.8); RED CELL DISTRIBUTION WIDTH 14.2 % (11.5-14.5)
[2025-02-02 15:18] LABS: CREATININE 1.86 MG/DL (0.60-1.10); PRE OP ANION GAP 6 (8-16); PRE OP AST 63 U/L (10-37); PRE OP BILIRUB, TOTAL 0.5 MG/DL (0.0-1.0); PRE OP GLUCOSE 83 MG/DL (70-104); PRE OP POTASSIUM 4.7 MMOL/L (3.4-5.1); PRE OP SODIUM 139 MMOL/L (135-145); TOTAL CARBON DIOXIDE 32.1 MMOL/L (24-32); eGFR 36 ML/MIN
[2025-02-02 15:19] LABS: PRE OP ALT 118 U/L (30-65)
[~2025-02-09] VITALS: Ht 170.2 cm; Wt 67.0 kg
[2025-02-09] VITALS (17 sets, daily range): BP systolic 90–143; BP diastolic 53–109; PULSE 72–103; RESP 12–21; TEMP 99; O2SAT 90–99
[2025-02-09] MEDS: ceFAZolin 2gm/dext,iso 50mL 50 ML IV ONE (05:30)
[2025-02-09] MEDS: DOCUMENT DATE & TIME OF BETA-BLOCKER PO ONE (06:00)
[~2025-02-09 12:04] MED LIST changes: +ACYC-53 PO; -ACYC200C30 PO; +ALBU8HFA IH; +CYCL1DRO18 EACHEYE; -DULA1.5P SQ; -ESCI-8 PO; +GABA300C PO; +HYDR-3973 PO; -ISOS30TA84 PO; +ISOS30TA9 PO; -LISI10TA27 PO; +LOPE2CAP PO; +LUBI24CA9 PO; -METF-438 PO; -ROSU40TA22 PO; +ROSU40TA89 PO; +SEMA2PEN SQ; +TRAZ-256 PO
--- NOTE | 2025-02-09 12:29 | ELECTROCARDIOGRAPH REPORT ---
[facility] Test Date: 2025-02-09 Test Time: 12:27:46 Pat Name: HUDSON WASHINGTON Department: [facility] Patient ID: [id number] Room: Gender: M Radiology Asst: keira : 1950 Requested By: HATTIE CHAVEZ Order Number: [id number] Reading MD: Dr. JOSE Kwon Measurements Intervals Hurricane Rate: 77 P: 70 ME: 135 QRS: -59 QRSD: 99 T: 50 QT: 406 QTc: 460 Interpretive Statements Sinus rhythm Probable left atrial enlargement Abnormal R-wave progression, early transition Inferolateral infarct, old Electronically Signed On 02-09-2025 18:40:[address] JOSE Kwon Please click the below link to view image of tracing.
[2025-02-09] MEDS: ringers solution, lacted 1,000 ML IV SCH (13:11)
[2025-02-09] MEDS: albuterol 2.5 MG/3 ML nebule NEB ONE (13:25)
[2025-02-09] MEDS ORDERED: hydrALAZINE 20mg/ml inj. IV PRN (14:25)
[2025-02-09] MEDS ORDERED: ondansetron/PF 4mg/2ml inj IV PRN (14:25)
[2025-02-09] MEDS ORDERED: HYDROmorphone/PF 0.2 MG/ML SYRINGE IV PRN ×2 (14:25)
[2025-02-09] MEDS ORDERED: acetaminophen 1,000mg/100ml IV 100 ML IV PRN (14:25)
[2025-02-09] MEDS ORDERED: morphine 4 MG/ML inj SYRINge IV PRN (14:25)
[2025-02-09] MEDS ORDERED: labetalol 20mg/4ml (5mg/ml) syringe IV PRN (14:25)
[2025-02-09] MEDS ORDERED: ringers solution, lacted 1,000 ML IV SCH (14:25)
[2025-02-09] MEDS ORDERED: midazolam 1 mg/ML 2ml injection IV ONE (14:35)
[2025-02-09] MEDS ORDERED: BUPIVAcaine 2.5mg/ml inj 50ml vial (contains preservative) ONE (14:37)
[2025-02-09] MEDS ORDERED: LIDOcaine 1% 30ml preserv. free vial ONE (14:38)
[2025-02-09] MEDS: midazolam 1 mg/ML 2ml injection IV ONE (14:56)
[2025-02-09] MEDS ORDERED: oxyCODONE/APAP 5-325mg tablet PO PRN (15:25)
[2025-02-09] MEDS ORDERED: BUPIVAcaine/PF 2.5mg/ml (0.25%) 10ml vial ONE (15:38)
[2025-02-09] MEDS ORDERED: BUPIVACAINE liposomal/PF 13.3 MG/ML 10mL vial IM ONE (15:39)
[2025-02-09] MEDS ORDERED: fentaNYL /PF 50mcg/ml 5ml ampule ONE (15:44)
[2025-02-09] MEDS ORDERED: rocuronium 10mg/ml inj IV ONE (15:57)
[2025-02-09] MEDS ORDERED: midazolam 1 mg/ML 2ml injection ONE (15:57)
[2025-02-09] MEDS ORDERED: LIDOcaine 2% (20mg/ml) 5ml vial ONE (15:57)
[2025-02-09] MEDS ORDERED: ondansetron/PF 4mg/2ml inj ONE (15:57)
[2025-02-09] MEDS ORDERED: propofol inj 20 ML IV ONE (15:57)
[2025-02-09] MEDS ORDERED: dexamethasone sod phosphate 4mg/ml inj. ONE (15:57)
[2025-02-09] MEDS ORDERED: glycopyrrolate 0.2mg/ml inj ONE (17:36)
--- NOTE | 2025-02-09 18:17 | OPERATIVE REPORT ---
Operative Report Providers to CC CC: BRANDIN CHAVEZ MD ~ Date of Procedure: Feb 09, 2025 Pre-Operative Diagnosis: Umbilical hernia, incisional hernia Post-Operative Diagnosis 1 cm umbilical hernia 4 cm incisional hernia Procedure Performed Robotic assisted, laparoscopic 4 cm incisional hernia repair with mesh 1 cm umbilical hernia repair Bilateral transversus abdominis plane nerve blocks by injection using 266 mg of Exparel Surgeon: Brandin Chavez MD FACS Game Moderator None Anesthesiologist: Lionel Weeks Type of Anesthesia: General Findings: 4 cm incisional hernia high in the epigastrium just below the xiphoid process 1 cm primary umbilical hernia Wound class I Complications None Prosthetics\Implants used: 10 x 15 cm self gripping polyester mesh 10 x 6 cm self gripping polyester mesh Estimated Blood Loss: Minimal Specimen Removed: Herniated omentum and hernia sac excised and discarded from the umbilical hernia defect Description of Procedure: Patient was brought to the operating room and identified by the nursing staff and the attending physician. Patient was placed supine and general anesthesia was induced. Preoperative antibiotics were given. The abdomen was prepped and draped in the standard sterile fashion. Mccullough technique was used along a supraumbilical 15 mm incision. This was deepened down through the subcutaneous tissues until a moderate-sized umbilical hernia sac was encountered. This was mobilized down to the fascia and opened. I was not able to reduce the herniated omentum. This was cross clamped at the level of the fascia and suture ligated followed by amputation. Specimen was passed off the field to be discarded. Mccullough port was passed through a 1 cm fascial defect that had to slightly be extended to accommodate the 12 mm port. This was secured to the fascia and abdomen insufflated without incident. Laparoscope was inserted. There was a moderate-sized fascial defect high in the epigastrium just below the xiphoid process. This correlated with a CABG surgical scar. Bilateral, mid abdominal 8.5 mm robotic trocars were placed under laparoscopic visualization. Patient was placed in slight reverse Trendelenburg position. Instruments were guided into the abdomen after docking the DA [place] robotic arm. Preperitoneal plane was developed about 8 cm below the fascial defect in the epigastrium. This involved dividing the falciform ligament. The preperitoneal plane was continued along the midline until the defect was reached. Out laterally adequate space for mesh deployment was developed by mobilizing the preperitoneal space about 7- 8 cm to the right and left was developed so that the total preperitoneal space measured about 15 cm in width. Herniated preperitoneal fat was mobilized out of the hernia space and the hernia sac completely reduced. Dissection was carried out over the costal margin bilaterally and up anterior to the xiphoid and distal sternum. Self gripping ProGrip mesh was then passed into the abdomen. A 10 x 15 cm patch was secured up underneath the sternum and was placed so that the long axis extended bilaterally. This did not adequately cover the hernia defect so a 2nd 10 x 6 cm ProGrip mesh was passed in an overlapped the initial mesh so that there was good distal overlap of the defect. No attempt at closing the 4 x 4 cm defect was made as it abutted the costal margin bilaterally. Peritoneal defect was then closed with a running absorbable suture. Prior to this, the overlapping edges of mesh were sutured together with a running absorbable suture. Once the peritoneal rent was closed, the needles were retrieved. Abdomen was deflated and ports removed. The 12 mm port site was removed and its fascial defect closed with a 0 Ethibond suture, repairing the 1 cm umbilical hernia defect. That knot was buried with an interrupted 0 Vicryl suture. All skin incisions were closed with 4-0 Monocryl sutures in a subcuticular fashion. Sterile dressings were applied. Patient was awakened and taken to the postanesthesia care unit in stable condition. Counts repoted as correct: Yes BRANDIN CHAVEZ MD Feb 09, 2025 18:17
== END 2025-02-09 19:00 | disposition home or self-care (01) ==
LOC: PAS 12:04
PROVIDERS: ATTEND Surgery
DX: K43.2 Incisional hernia without obstruction or gangrene (principal); K42.9 Umbilical hernia without obstruction or gangrene; I11.0 Hypertensive heart disease with heart failure; I50.9 Heart failure, unspecified; E11.9 Type 2 diabetes mellitus without complications; E78.5 Hyperlipidemia, unspecified; E03.9 Hypothyroidism, unspecified; J44.9 Chronic obstructive pulmonary disease, unspecified; F41.9 Anxiety disorder, unspecified; F32.A Depression, unspecified; I25.2 Old myocardial infarction; Z86.73 Personal history of transient ischemic attack (TIA), and cerebral infarction without residual deficits; Z87.891 Personal history of nicotine dependence; Z79.82 Long term (current) use of aspirin; Z79.899 Other long term (current) drug therapy; Z95.1 Presence of aortocoronary bypass graft; Z96.611 Presence of right artificial shoulder joint; Z98.890 Other specified postprocedural states; Z88.8 Allergy status to other drugs, medicaments and biological substances
CPT/HCPCS: 36415; 49593; 80053; 82948; 85025; 93005; 94640; A4215; A4618; C1781; J0666; J1100; J2003; J2250; J2405; J2704; J2710; J3010; J3490; J7030; J7120; Z7506; Z7508; Z7512; Z7610